=== PATIENT | female | born 1955 | race Caucasian/White ===

== ENCOUNTER 2016-11-11 05:23 | Day surgery (SDC) | payer BC, OTHER ==
[2016-10-31 11:21] LABS: HEMATOCRIT 41.6 % (36.0-47.0); HEMOGLOBIN 13.7 g/dL (12.0-15.5); HGB HCT DIFFERENCE -0.5; MEAN CORPUSCULAR HEMOGLOBIN 28.7 pg (27.0-33.4); MEAN CORPUSCULAR VOLUME 87 fl (80-97); RED BLOOD COUNT 4.79 10^6/uL (3.72-5.28); RED CELL DISTRIBUTION WIDTH 13.7 % (11.5-14.0); WHITE BLOOD COUNT 7.7 10^3/uL (4.0-10.5)
[2016-10-31 11:26] LABS: PROTHROMBIN TIME 12.9 SEC (11.4-15.4)
[2016-10-31 11:27] LABS: PARTIAL THROMBOPLASTIN TIME 27.5 SEC (23.5-35.8)
[~2016-11-11 05:23] MED LIST: CEFAZOLIN 1 GM/D5W RTU 1 GM/50 ML RTUPB IV PRN; LACTATED RINGERS 1000 ML IV PRN; LIDOCAINE 0.5% INJ-PF (5 MG/ML) 50 ML SDV SUBCUT PRN
[2016-11-11] MEDS ORDERED: SODIUM BICARBONATE 8.4% INJ 50 MEQ/50 ML DISP.SYRIN ONE (06:49)
[2016-11-11] MEDS ORDERED: POVIDONE-IODINE 5% OPH PREP SOLN 30 ML ONE (06:49)
[2016-11-11] MEDS ORDERED: LIDOCAINE 1%/EPINEPHRINE INJ 20 ML VIAL ONE (06:50)
[2016-11-11] MEDS ORDERED: MIDAZOLAM 2 MG/2 ML INJ ONE (06:54)
[2016-11-11] MEDS ORDERED: FENTANYL CITRATE INJ/PF 100 MCG/2 ML AMPUL ONE ×2 (06:54)
[2016-11-11] MEDS ORDERED: PROPOFOL INJ 200 MG/20 ML VIAL IV ONE (06:55)
[2016-11-11] MEDS ORDERED: DIPHENHYDRAMINE HCL 50 MG/ML VIAL IV PRN (08:06)
[2016-11-11] MEDS ORDERED: OXYCODONE-ACETAMINOPHEN 5-325 MG TABLET PO PRN ×2 (08:06)
[2016-11-11] MEDS ORDERED: MEPERIDINE HCL/PF INJ 25 MG/1 ML DISP.SYRIN IV PRN (08:06)
[2016-11-11] MEDS ORDERED: PROMETHAZINE HCL INJ 25 MG/1 ML VIAL IV PRN ×2 (08:06)
[2016-11-11] MEDS ORDERED: FENTANYL CITRATE INJ/PF 100 MCG/2 ML AMPUL IV PRN ×3 (08:06)
[2016-11-11] MEDS ORDERED: MORPHINE SULFATE 10 MG/ML INJ IV PRN (08:06)
--- NOTE | 2016-11-11 09:50 | Operative Report ---
Operative Report DATE OF SURGERY: 11/11/16 PREOPERATIVE DIAGNOSIS: Basal squamous cell carcinoma of the right nose POSTOPERATIVE DIAGNOSIS: Same OPERATION: Excision of basal squamous carcinoma of the right hip and nose with frozen section margin control and reconstruction with a full thickness graft with a bolus tie-over dressing and the graft was taken from the right clavicular area. SURGEON: DENISSE ARGUETA ANESTHESIA: LMAC TISSUE REMOVED OR ALTERED: Basal squamous cell carcinoma COMPLICATIONS: None ESTIMATED BLOOD LOSS: Minimal PROCEDURE: The patient was brought into the operating room. The patient was laid on the operating room table in a supine position. The patient was prepped and draped in a sterile and aseptic fashion. After a timeout we then went ahead and marked the area [on the right tip of the nose] to be resected. The 12:00 margin was towards the nasion. The 3:00 margin was towards the left side of the nose. The 6:00 margin was towards the lip. The 9:00 margin was towards the right side of the nose. Then went ahead and anesthetize the area with 1% lidocaine with epinephrine. Then went ahead and excise the area. Stitch was placed at 12:00 and it was sent for frozen section. Frozen section results came back that the deep and lateral margins were clear. We irrigated the wound with [Betadine] sterile water to lyse any remaining cancer cells. We then went ahead and decided that because of the size of the defect we will proceed with a skin graft. Decided to harvest the graft from [the right clavicular area]. We then went ahead and harvest the [full-thickness] graft. We closed the area with [4-0 Vicryl] sutures and the skin was then closed with 4 -0 PDS with knots being tied on the outside and a support stitch in the center. At the end of the case tincture of benzoin and Steri-Strips were applied with a light pressure dressing. Graft was then defatted to the appropriate size and placed into the area of defect. It was then sutured into place with [5-0 Prolene] sutures leaving one end long. After all the sutures were placed we then went ahead and applied Xeroform. Then went ahead and created a bolus dressing and tied each suture 180 from each other. Then tied the sutures again to each other. Bacitracin was applied. 2 x 2's were applied and tincture benzoin and the dressing was taped into place. At the end of the case the patient was doing well and brought to the PAR for recovery The approximate size of the lesion was approximately 1.1 cm x 1.1 cm. This dictation was performed using [employer] naturally speaking. If there are any inconsistencies please contact the dictating surgeon. Subjective: No complaints Objective: Vital signs stable afebrile No bleeding Dressing intact Assessment and plan: Doing well. Elevate the operative site. Resume medications. Take antibiotics for 1 day Follow-up Full instructions were given to the patient and family and they understand Portions of this note may be dictated using Att[employer] voice recognition software. Occasional variations and spelling and vocabulary could be possible and are unintentional. Additionally, there is a chance that some errors may not be caught or corrected. Please notify the offer of any discrepancies noted or if any statements are unclear.
--- NOTE | 2016-11-11 09:52 | PDOC DISCHARGE SUMMARY ---
Discharge Summary (SDC) - Discharge Final Diagnosis: Basal squamous carcinoma of the right tip of the nose Date of Surgery: 11/11/16 Condition: Good Treatment or Instructions: Elevate operative area to decrease swelling. Do not strain, or lift heavy objects. Call for excessive bleeding, increased temperature of 101, uncontrolled pain, or excessive nausea or vomiting. You may reach Dr. Alatorre through his office at [phone]. In the event of an emergency after hours, then contact Dr. Alatorre through [facility]. Return to the office for a postop check on . The time will be scheduled by the nursing staff of [facility] prior to discharge. Please give the patient a copy of their labs and EKG so they can bring this to their PMD. Thank you Portions of this note may be dictated using Pollenizer voice recognition software. Occasional variations and spelling and vocabulary could be possible and are unintentional. Additionally, there is a chance that some errors may not be caught or corrected. Please notify the offer of any discrepancies noted or if any statements are unclear. Discharge Diet: As Tolerated Discharge Activity: Activity As Tolerated - Discharge to home
[2016-11-11] MEDS ORDERED: DEXAMETHASONE SOD PHOSPHATE INJ 4 MG/1 ML VIAL ONE (10:43)
[2016-11-11] MEDS ORDERED: ONDANSETRON HCL INJ/PF 4 MG/2 ML SDV ONE (10:43)
[2016-11-11 11:21] VITALS: BP 120/69
== END 2016-11-11 11:10 | disposition home or self-care (01) ==
LOC: OROUT 05:23
PROVIDERS: ATTEND Plastic Surgery
PROC: 0HR1X73 Replacement of Face Skin with Autologous Tissue Substitute, Full Thickness, External Approach (ICD-10-PCS; principal; 2016-11-11 07:30)
DX: C44.311 Basal cell carcinoma of skin of nose (principal); C44.321 Squamous cell carcinoma of skin of nose; R01.1 Cardiac murmur, unspecified; K21.9 Gastro-esophageal reflux disease without esophagitis; E66.9 Obesity, unspecified; J45.909 Unspecified asthma, uncomplicated; F17.210 Nicotine dependence, cigarettes, uncomplicated; M19.90 Unspecified osteoarthritis, unspecified site; Z86.73 Personal history of transient ischemic attack (TIA), and cerebral infarction without residual deficits; Z68.33 Body mass index [BMI] 33.0-33.9, adult; Z79.51 Long term (current) use of inhaled steroids; Z79.82 Long term (current) use of aspirin; Z79.1 Long term (current) use of non-steroidal anti-inflammatories (NSAID)
CPT/HCPCS: 11642; 15260; 36415; 82962; 85027; 85610; 85730; 88305 ×2; 88331 ×2; J2250; J0690; J1100; J3010; J3490 ×3; J2405; J2704; 300

== ENCOUNTER 2017-07-24 08:49 | Inpatient (IN) | payer BC ==
[2017-07-24] MEDS ORDERED: ALBUTEROL SULFATE 0.083% NEB 2.5 MG/3 ML AMPUL NEB ONE ×2 (09:10→10:16)
--- NOTE | 2017-07-24 09:15 | ER Document Report ---
ED Respiratory Problem - General Chief Complaint: Respiratory Distress Stated Complaint: DIFFICULTY BREATHING Time Seen by Provider: 07/24/17 09:14 TRAVEL OUTSIDE OF THE [place] IN LAST 30 DAYS: No - HPI Patient complains to provider of: COPD, Cough, Short of breath Onset: Last week Duration: Continuous, Worse/persistent Quality of pain: No pain Severity: Moderate Pain Level: Denies Context: Hx asthma, Hx COPD, Smoker. denies: DVT, Factor V Leiden, Hx CHF, Malignancy, Recent cardiac event, Recent foreign travel, Recent long distance trvl Short of Breath: Moderate Cough: Productive Sputum amount: Small Sputum color: Clear At home treatment: Bronchodilators, Oral steroids. denies: Oxygen Associated symptoms: Cough, Short of breath, Wheezing - Related Data Allergies/Adverse Reactions: No Known Allergies Allergy (Verified 07/24/17 08:55) Past Medical History - General Information source: Patient - Social History Smoking Status: Current Every Day Smoker Cigarette use (# per day): Yes Smoking Education Provided: Yes Frequency of alcohol use: None Drug Abuse: None Lives with: Family Family History: Reviewed & Not Pertinent - Past Medical History Cardiac Medical History: Reports: Hx Hypertension - NO LONGER ON MEDS Denies: Hx Coronary Artery Disease, Hx Heart Attack Pulmonary Medical History: Reports: Hx Asthma, Hx Bronchitis, Hx COPD, Hx Pneumonia Neurological Medical History: Reports: Hx Cerebrovascular Accident - EARLY 1999s , NO DEFICITS. Denies: Hx Seizures Musculoskeltal Medical History: Reports Hx Arthritis - FINGERS, HIPS - Immunizations Hx Diphtheria, Pertussis, Tetanus Vaccination: No Review of Systems - Review of Systems Constitutional: denies: Fever, Malaise, Weakness EENT: denies: Blurred vision, Double vision, Mouth pain Cardiovascular: denies: Chest pain, Palpitations, Heart racing Respiratory: Cough, Hurts to breathe, Short of breath, Wheezing Gastrointestinal: denies: Abdominal pain, Diarrhea, Nausea, Vomiting Genitourinary: denies: Burning, Dysuria, Discharge Skin: denies: Change in color, Dryness, Lesions, Lumps, Rash Hematologic/Lymphatic: denies: Anemia, Blood clots, Easy bleeding, Easy bruising Neurological/Psychological: denies: Confusion, Dementia, Weakness, Numbness Physical Exam - Vital signs Vitals: Temp Pulse Resp BP Pulse Ox 97.6 F 84 26 H 159/78 H 90 L 07/24/17 08:59 07/24/17 08:59 07/24/17 08:59 07/24/17 08:59 07/24/17 08:59 Interpretation: Hypoxic, Tachypneic - General General appearance: Appears well, Alert - HEENT Head: Normocephalic, Atraumatic Eyes: Normal Pupils: PERRL - Respiratory Respiratory status: No respiratory distress Chest status: Nontender Breath sounds: Decreased air movement, Productive cough, Rhonchi, Wheezing Chest palpation: Normal - Cardiovascular Rhythm: Regular Heart sounds: Normal auscultation Murmur: No - Abdominal Inspection: Normal Distension: No distension Bowel sounds: Normal Tenderness: Nontender Organomegaly: No organomegaly - Back Back: Normal, Nontender - Extremities General upper extremity: Normal inspection, Nontender, Normal color, Normal ROM , Normal temperature. No: Edema General lower extremity: Normal inspection, Nontender, Normal color, Normal ROM , Normal temperature, Normal weight bearing. No: Edema, Radha's sign - Neurological Neuro grossly intact: Yes Cognition: Normal Orientation: AAOx4 Hugh Coma Scale Eye Opening: Spontaneous Blenheim Coma Scale Verbal: Oriented Hugh Coma Scale Motor: Obeys Commands Blenheim Coma Scale Total: 15 Speech: Normal Motor strength normal: LUE, RUE, LLE, RLE Sensory: Normal - Psychological Associated symptoms: Normal affect, Normal mood - Skin Skin Temperature: Warm Skin Moisture: Dry Skin Color: Normal Course - Re-evaluation Re-evalutation: 07/24/17 10:45 Patient with elevated WBC count, hypoxia when taken off oxygen. Has been treated as an outpatient not getting better. Will need admit. Awaiting callback at this time from Dr. Sierra 07/24/17 11:02 Patient accepted admission at this time. 07/24/17 11:03 Laboratory 07/24/17 07/24/17 07/24/17 09:24 09:24 09:24 WBC 17.0 H RBC 4.98 Hgb 14.5 Hct 42.8 MCV 86 MCH 29.0 MCHC 33.8 RDW 13.7 Plt Count 337 Seg Neutrophils % 84.5 H Lymphocytes % 11.0 L Monocytes % 4.3 Eosinophils % 0.0 Basophils % 0.2 Absolute Neutrophils 14.3 H Absolute Lymphocytes 1.9 Absolute Monocytes 0.7 Absolute Eosinophils 0.0 Absolute Basophils 0.0 Sodium 141.1 Potassium 4.3 Chloride 102 Carbon Dioxide 30 Anion Gap 9 BUN 17 Creatinine 0.77 Est GFR ( Amer) > 60 Est GFR (Non-Af Amer) > 60 Glucose 115 H Lactic Acid Calcium 9.8 Total Bilirubin 0.8 Direct Bilirubin 0.4 Neonat Total Bilirubin Not Reportable Neonat Direct Bilirubin Not Reportable Neonat Indirect Bili Not Reportable AST 22 ALT 31 Alkaline Phosphatase 92 Troponin I < 0.012 Total Protein 7.6 Albumin 4.1 07/24/17 10:28 WBC RBC Hgb Hct MCV MCH MCHC RDW Plt Count Seg Neutrophils % Lymphocytes % Monocytes % Eosinophils % Basophils % Absolute Neutrophils Absolute Lymphocytes Absolute Monocytes Absolute Eosinophils Absolute Basophils Sodium Potassium Chloride Carbon Dioxide Anion Gap BUN Creatinine Est GFR ( Amer) Est GFR (Non-Af Amer) Glucose Lactic Acid 1.0 Calcium Total Bilirubin Direct Bilirubin Neonat Total Bilirubin Neonat Direct Bilirubin Neonat Indirect Bili AST ALT Alkaline Phosphatase Troponin I Total Protein Albumin Chest X-Ray 07/24/17 09:25 IMPRESSION: NO ACUTE RADIOGRAPHIC FINDING IN THE CHEST. - Vital Signs Vital signs: Temp Pulse Resp BP Pulse Ox 97.6 F 84 26 H 159/78 H 90 L 07/24/17 08:59 07/24/17 08:59 07/24/17 08:59 07/24/17 08:59 07/24/17 08:59 - Laboratory Result Diagrams: 07/24/17 09:24 07/24/17 09:24 Laboratory results interpreted by me: 07/24/17 07/24/17 09:24 09:24 WBC 17.0 H Seg Neutrophils % 84.5 H Lymphocytes % 11.0 L Absolute Neutrophils 14.3 H Glucose 115 H Discharge - Discharge Clinical Impression: COPD with exacerbation Condition: Good Disposition: ADMITTED INPATIENT Admitting Provider: [facility] Unit Admitted: Telemetry
[2017-07-24 09:42] LABS: ABSOLUTE LYMPHOCYTES (AUTO) 1.9 10^3/uL (0.5-4.7); ABSOLUTE MONOCYTES (AUTO) 0.7 10^3/uL (0.1-1.4); ABSOLUTE NEUT (AUTO) 14.3 10^3/uL (1.7-8.2); BASOPHILS % (AUTO) 0.2 % (0-2); HEMATOCRIT 42.8 % (36.0-47.0); HEMOGLOBIN 14.5 g/dL (12.0-15.5); MEAN CORPUSCULAR HGB CONC 33.8 g/dL (32.0-36.0); MEAN CORPUSCULAR VOLUME 86 fl (80-97); MONOCYTES % (AUTO) 4.3 % (3-13); PLATELET COUNT 337 10^3/uL (150-450); RED BLOOD COUNT 4.98 10^6/uL (3.72-5.28); RED CELL DISTRIBUTION WIDTH 13.7 % (11.5-14.0); SEGMENTED NEUTROPHILS % (AUTO) 84.5 % (42-78); TOTAL CELLS COUNTED % (AUTO) 100 %
[2017-07-24 10:04] LABS: ALANINE AMINOTRANSFERASE 31 U/L (9-52); ALBUMIN 4.1 g/dL (3.5-5.0); ALKALINE PHOSPHATASE 92 U/L (38-126); ANION GAP 9 (5-19); ASPARTATE AMINO TRANSFERASE 22 U/L (14-36); BILIRUBIN,DIRECT 0.4 mg/dL (0.0-0.4); BILIRUBIN,TOTAL 0.8 mg/dL (0.2-1.3); BLOOD UREA NITROGEN 17 mg/dL (7-20); CALCIUM 9.8 mg/dL (8.4-10.2); CARBON DIOXIDE 30 mmol/L (22-30); CHLORIDE 102 mmol/L (98-107); GLUCOSE 115 mg/dL (75-110); POTASSIUM 4.3 mmol/L (3.6-5.0); SODIUM 141.1 mmol/L (137-145); TOTAL PROTEIN 7.6 g/dL (6.3-8.2)
--- NOTE | 2017-07-24 10:11 | RADIOLOGY REPORT (SQ) ---
EXAM DESCRIPTION: CHEST SINGLE VIEW COMPLETED DATE/TIME: 07/24/2017 9:38 am REASON FOR STUDY: sob COMPARISON: None. EXAM PARAMETERS: NUMBER OF VIEWS: One view. TECHNIQUE: Single frontal radiographic view of the chest acquired. RADIATION DOSE: NA LIMITATIONS: None. FINDINGS: LUNGS AND PLEURA: No opacities, masses or pneumothorax. No pleural effusion. MEDIASTINUM AND HILAR STRUCTURES: No masses. Contour normal. HEART AND VASCULAR STRUCTURES: Heart normal in size. Normal vasculature. BONES: No acute findings. HARDWARE: None in the chest. OTHER: No other significant finding. IMPRESSION: NO ACUTE RADIOGRAPHIC FINDING IN THE CHEST. TECHNICAL DOCUMENTATION: JOB ID: [id number] [employer]- All Rights Reserved Reading location - IP/workstation name: [email or web address]
[2017-07-24] MEDS ORDERED: METHYLPREDNISOLONE INJ 125 MG/2 ML SDV IV ONE (10:16)
[2017-07-24] MEDS ORDERED: LEVOFLOXACIN 750 MG/D5W RTU 750 MG/150 ML RTUPB IV ONE (10:17)
[2017-07-24] MEDS ORDERED: ONDANSETRON HCL INJ/PF 4 MG/2 ML SDV IV ONE (11:15)
[2017-07-24] MEDS ORDERED: ONDANSETRON HCL INJ/PF 4 MG/2 ML SDV ONE (11:17)
[2017-07-24] MEDS ORDERED: ONDANSETRON 4 MG TAB.RAPDIS PO PRN (11:19)
[2017-07-24] MEDS ORDERED: ALBUTEROL SULFATE 0.083% NEB 2.5 MG/3 ML AMPUL NEB PRN (11:19)
[2017-07-24] MEDS ORDERED: DEXTROSE 50%-WATER 25 GM/50 ML DISP.SYRIN IV PRN ×2 (11:27)
[2017-07-24] MEDS ORDERED: DEXTROSE 40% GEL 15 GM TUBE PO PRN ×2 (11:27)
[2017-07-24] MEDS ORDERED: GLUCAGON,HUMAN RECOMB 1 MG INJ IM PRN (11:27)
[2017-07-24 11:33] LABS: ARTERIAL BLOOD BASE EXCESS 3.5 mmol/L; ARTERIAL BLOOD FIO2 2L; ARTERIAL BLOOD H2CO3 1.16 mmol/L (1.05-1.35); ARTERIAL BLOOD HCO3 27.3 mmol/L (20-26); ARTERIAL BLOOD O2 SATURATION 94.4 % (94-98); ARTERIAL BLOOD PCO2 38.5 mmHg (35-45); ARTERIAL BLOOD PH 7.47 (7.35-7.45); ARTERIAL BLOOD PO2 66.9 mmHg (80-100); ARTERIAL BLOOD TOTAL CO2 28.4 mmol/L (21-25)
--- NOTE | 2017-07-24 12:55 | RADIOLOGY REPORT (SQ) ---
EXAM DESCRIPTION: CTA CHEST COMPLETED DATE/TIME: 07/24/2017 12:44 pm REASON FOR STUDY: sob COMPARISON: None. TECHNIQUE: CT scan of the chest performed using helical scanning technique with dynamic intravenous contrast injection. Images reviewed with lung, soft tissue and bone windows. Reconstructed coronal and sagittal MPR images reviewed. Additional 3 dimensional post-processing performed to develop Maximal Intensity Projection images ([place] P). All images stored on PACS. All CT scanners at this facility use dose modulation, iterative reconstruction, and/or weight based d osing when appropriate to reduce radiation dose to as low as reasonably achievable (ALARA). [facility]: Dose Right [facility]: CareDose [facility]: Dose Right [facility]: Teradose 4D [facility]: Aethon CONTRAST TYPE AND DOSE: contrast/concentration: Isovue 370.00 mg/ml; Total Contrast Delivered: 72.0 ml; Total Saline Delivered: 80.0 ml Contrast bolus adequate for pulmonary arteries and aorta. RENAL FUNCTION: GFR > 60. RADIATION DOSE: CT Rad equipment meets quality standard of care and radiation dose reduction techniq ues were employed. CTDIvol: 16.1 - 16.5 mGy. DLP: 609 mGy-cm. . LIMITATIONS: None. FINDINGS: LUNGS AND PLEURA: No masses, infiltrates, pneumothorax. No pleural effusions, calcificati ons. AORTA AND GREAT VESSELS: No aneurysm. No dissection. HEART: No pericardial effusion. PULMONARY ARTERIES: No emboli visualized in the main pulmonary arteries or the segmental branches. HILAR AND MEDIASTINAL STRUCTURES: No identified masses or abnormal nodes. HARDWARE: None in the chest. UPPER ABDOMEN: No significant findings. Limited exam. THYROID AND OTHER SOFT TISSUES: Breast implants. BONES: No acute or significant finding. 3D MIPS: Confirm above findings. OTHER: No other significant finding. IMPRESSION: No PE. No acute findings. COMMENT: Quality ID # [id number]: Final reports with documentation of one or more dose reduction techniques (e.g., Automated exposure control, adjustment of the mA and/or kV according to patient size, use of iterative reconstruction technique) TECHNICAL DOCUMENTATION: JOB ID: [id number] [employer]- All Rights Reserved Reading location - IP/workstation name: [email or web address]
[2017-07-24 13:09] LABS: CREATINE KINASE MB 3.41 ng/mL (<4.55); NT PRO BNP 212 pg/mL (5-900); TROPONIN I < 0.012 ng/mL
[2017-07-24] MEDS: IPRATROPIUM/ALBUTEROL 0.5-2.5 MG/3 ML AMPUL NEB SCH ×2 (13:49→20:20)
[2017-07-24] MEDS ORDERED: INFLUENZA ADLT QUAD (36MOS+) 2017-18 VAC 0.5 ML SYR IM PRN (14:11)
[2017-07-24] MEDS: METHYLPREDNISOLONE INJ 125 MG/2 ML SDV IV SCH ×2 (15:34→22:28)
[2017-07-24] MEDS ORDERED: [UNRECOGNIZED DRUG - OTHER] PO PRN (16:32)
[2017-07-24] MEDS ORDERED: HYDROCODONE PO PRN (16:32)
[2017-07-24] MEDS ORDERED: CHLORPHEN P STIREX PO PRN (16:32)
--- NOTE | 2017-07-24 17:00 | PDOC H&P ---
History of Present Illness Admission Date/PCP: 07/24/17 10:57 LESA [place] MD Patient complains of: Dyspnea, cough with dark yellow sputum History of Present Illness: MANI CRISOSTOMO is a 62 year old female who has a long-standing history of tobacco use disorder. She reports that recently she had the flu. She was out of work for about a week. She states that with the recent strange weather including heat followed by extreme cold followed by when she feels that her body just could not keep up and she started having difficulty breathing. She is been seen at her primary care doctor's office for the last few days and states that she has been receiving steroids and IM ceftriaxone 2 doses. Today she went to her primary care doctor for follow-up and secondary to significant dyspnea she was sent to the ER. In the ER she had a CTA to rule out pulmonary embolus. She received steroids and nebulizer. She is being admitted for COPD exacerbation, though she has never been diagnosed with COPD. Given her tobacco history this is the most likely diagnosis. Today she has started to expectorate dark yellow phlegm. No fevers or chills though she has been very fatigued. No chest pain. No abdominal pain nausea or vomiting. Past Medical History Cardiac Medical History: Reports: Hypertension - NO LONGER ON MEDS Denies: Coronary Artery Disease, Myocardial Infarction Pulmonary Medical History: Reports: Asthma, Bronchitis, Chronic Obstructive Pulmonary Disease (COPD), Pneumonia EENT Medical History: Reports: None Neurological Medical History: Denies: Ischemic CVA, Seizures Endocrine Medical History: Denies: Diabetes Mellitus Type 2 Renal/ Medical History: Denies: Chronic Kidney Disease Malignancy Medical History: Reports: None GI Medical History: Reports: None Musculoskeltal Medical History: Reports: Arthritis - FINGERS, HIPS Skin Medical History: Reports: Other - Patient has had 2 basal cell carcinomas excised Psychiatric Medical History: Reports: Tobacco Dependency Denies: Alcohol Dependency, Substance Abuse Hematology: Denies: Anemia, Bleeding Tendencies Infectious Medical History: Reports: None Past Surgical History Past Surgical History: Reports: Hysterectomy, Other - Breast implants, dental posts, 2 basal cell carcinoma removals Social History Information Source: Patient Lives with: Family Smoking Status: Current Every Day Smoker Cigarettes Packs Per Day: 1 Number of Years Smokin Frequency of Alcohol Use: None Hx Recreational Drug Use: No Drugs: None Hx Prescription Drug Abuse: No Past Social History Note: 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 She has children and grandchildren in her room with her - Advance Directive Resuscitation Status: Full Code Family History Family History: CAD, Malignancy Parental Family History Reviewed: Yes - Father with an AK, mother had uterine and pancreatic cancer Children Family History Reviewed: Yes - Children are healthy Sibling(s) Family History Reviewed.: Yes - One brother is diabetic with COPD, another brother with a heart attack Medication/Allergy Home Medications: Albuterol Sulfate [Ventolin 0.083% Neb 2.5 mg/3 ml Ampul] 1 vial NEB [id number] PRN 07/24/17 Azithromycin [Zithromax] 250 mg PO DAILY 07/24/17 Ergocalciferol (Vitamin D2) [Vitamin D2] 50,000 unit PO TH@1000 07/24/17 Fluticasone/Salmeterol [Advair 500-50 Diskus 28 Dose] 1 inh IH Q12 07/24/17 Hydrocodone/Chlorphen P-Stirex [Tussionex Pennkinetic Susp] 5 ml PO Q12 Montelukast Sodium [Singulair 10 mg Tablet] 10 mg PO DAILY 07/24/17 Pantoprazole Sodium [Protonix] 40 mg PO Q6AM 07/24/17 Prednisone [Deltasone 20 mg Tablet] 60 mg PO DAILY 07/24/17 Allergies/Adverse Reactions: bacitracin Allergy (Verified 07/24/17 16:49) Review of Systems Constitutional: PRESENT: fatigue, weight gain. ABSENT: fever(s) Eyes: ABSENT: visual disturbances Ears: ABSENT: hearing changes Nose, Mouth, and Throat: ABSENT: headache(s), mouth pain, sore throat Cardiovascular: PRESENT: dyspnea on exertion. ABSENT: chest pain, edema, orthropnea Gastrointestinal: ABSENT: abdominal pain, constipation, nausea, vomiting Genitourinary: ABSENT: difficulty urinating Musculoskeletal: ABSENT: back pain, muscle weakness Integumentary: ABSENT: diaphoresis, lesions Neurological: ABSENT: abnormal speech, confusion, focal weakness, frequent falls Psychiatric: ABSENT: anxiety, depression Endocrine: ABSENT: cold intolerance, heat intolerance Hematologic/Lymphatic: ABSENT: easy bleeding Physical Exam Vital Signs: Temp Pulse Resp BP Pulse Ox 98.5 F 94 18 152/66 H 95 07/24/17 15:27 07/24/17 15:27 07/24/17 15:27 07/24/17 15:27 07/24/17 15:27 General appearance: PRESENT: cooperative, mild distress Head exam: PRESENT: atraumatic, normocephalic Eye exam: PRESENT: conjunctiva pink, EOMI. ABSENT: scleral icterus Ear exam: PRESENT: normal external ear exam. ABSENT: drainage Mouth exam: PRESENT: moist, neck supple Neck exam: PRESENT: full ROM. ABSENT: tenderness Respiratory exam: PRESENT: decreased breath sounds, prolonged expiratory phas, tachypnea, wheezes. ABSENT: rales, rhonchi, unlabored Cardiovascular exam: PRESENT: tachycardia. ABSENT: systolic murmur Pulses: PRESENT: normal radial pulses GI/Abdominal exam: PRESENT: normal bowel sounds, soft. ABSENT: distended, guarding, tenderness Rectal exam: PRESENT: deferred Extremities exam: ABSENT: pedal edema Musculoskeletal exam: PRESENT: normal inspection Neurological exam: PRESENT: alert, awake, oriented to person, oriented to place , oriented to situation, CN II-XII grossly intact Psychiatric exam: PRESENT: appropriate affect. ABSENT: anxious Skin exam: PRESENT: dry, intact, warm Results Laboratory Results: 07/24/17 07/24/17 12:13 12:13 Creatine Kinase 80 CK-MB (CK-2) 3.41 Troponin I < 0.012 NT-Pro-B Natriuret Pep 212 Impressions: Chest X-Ray 07/24/17 09:25 IMPRESSION: NO ACUTE RADIOGRAPHIC FINDING IN THE CHEST. Chest/Abdomen CTA 07/24/17 11:03 IMPRESSION: No PE. No acute findings. Assessment & Plan - Diagnosis (1) Pneumonia, community acquired Qualifiers: Laterality: unspecified laterality Qualified Code(s): J18.9 - Pneumonia, unspecified organism Is this a current diagnosis for this admission?: Yes Plan: Pathogen unknown, sputum culture ordered, patient is on Levaquin 750 mg p.o. daily. No chest x-ray evidence of pneumonia though she is producing sputum and has a severe COPD exacerbation. Sputum is not her normal baseline. (2) COPD with exacerbation Is this a current diagnosis for this admission?: Yes Plan: Patient will be started on Levaquin. Secondary to severe wheezing and dyspnea she is on Solu-Medrol 125 mg IV every 8 hours and will reassess this dosing tomorrow morning. She has scheduled duo nebs and as needed albuterol available. She is feeling better. She is still requiring oxygen. She will be monitored closely. (3) Acute hypoxemic respiratory failure Is this a current diagnosis for this admission?: Yes Plan: Secondary to COPD exacerbation which is fairly severe and also pneumonia. Please see those problems for treatment plan. We will use oxygen as indicated and titrate hopefully to off prior to discharge. CTA of the chest is negative for PE. (4) Tobacco use disorder, continuous Is this a current diagnosis for this admission?: Yes Plan: Tobacco cessation counseling performed for 6 minutes. Patient does not want a NicoDerm patch. She has tried to quit multiple times in the past and would like to continue to try to quit. We will help her with strategies prior to discharge. She was on Chantix but gained a significant amount of weight. We talked about Wellbutrin. Will continue discussion. (5) Diabetes Qualifiers: Diabetes mellitus type: due to underlying condition Is this a current diagnosis for this admission?: Yes Plan: hemoglobin A1c is 6.1. She does not have known diabetes. She has been on steroids for an unknown period of time for her lung disease. For now will use lispro before meals and at bedtime. Will consider adding long-acting glargine once we have a little bit more data. - Time Time Spent: 50 to 70 Minutes Medications reviewed and adjusted accordingly: Yes - Inpatient Certification Based on my medical assessment, after consideration of the patient's comorbidities, presenting symptoms, or acuity I expect that the services needed warrant INPATIENT care.: Yes I certify that my determination is in accordance with my understanding of Medicare's requirements for reasonable and necessary INPATIENT services [42 CFR 412.3e].: Yes Medical Necessity: Failure to Improve With Outpatient Therapy, Need Close Monitoring Due to Risk of Patient Decompensation, Need for Nebulizer Therapy and Monitoring of Response, Risk of Complication if Not Cared For in Hospital
[2017-07-24 18:41] LABS: CREATINE KINASE MB 3.76 ng/mL (<4.55)
[2017-07-24 18:46] LABS: TROPONIN I < 0.012 ng/mL
--- NOTE | 2017-07-24 21:13 | EKG REPORT ---
SEVERITY:- NORMAL ECG - SINUS RHYTHM : Confirmed by: Telly Powell 24-Jul-2017 21:12:04
[2017-07-24] MEDS: PANTOPRAZOLE SODIUM 40 MG VIAL IV SCH (22:27)
[2017-07-24] MEDS: INSULIN LISPRO 100 UNIT/ML 3 ML VIAL SUBCUT PRN (22:33)
[2017-07-25 00:33] LABS: CREATINE KINASE MB 4.38 ng/mL (<4.55); TROPONIN I < 0.012 ng/mL
[2017-07-25] MEDS: METHYLPREDNISOLONE INJ 125 MG/2 ML SDV IV SCH ×3 (05:48→21:55)
[2017-07-25 07:32] LABS: HEMOGLOBIN 13.5 g/dL (12.0-15.5); MEAN CORPUSCULAR HEMOGLOBIN 28.9 pg (27.0-33.4); MEAN CORPUSCULAR HGB CONC 33.7 g/dL (32.0-36.0); MEAN CORPUSCULAR VOLUME 86 fl (80-97); PLATELET COUNT 289 10^3/uL (150-450); RED BLOOD COUNT 4.67 10^6/uL (3.72-5.28); RED CELL DISTRIBUTION WIDTH 14.2 % (11.5-14.0); WHITE BLOOD COUNT 18.6 10^3/uL (4.0-10.5)
[2017-07-25 07:52] LABS: ANION GAP 8 (5-19); BLOOD UREA NITROGEN 22 mg/dL (7-20); CALCIUM 9.5 mg/dL (8.4-10.2); CARBON DIOXIDE 29 mmol/L (22-30); CHLORIDE 103 mmol/L (98-107); GLUCOSE 156 mg/dL (75-110); POTASSIUM 4.8 mmol/L (3.6-5.0); SODIUM 139.6 mmol/L (137-145)
[2017-07-25] MEDS: IPRATROPIUM/ALBUTEROL 0.5-2.5 MG/3 ML AMPUL NEB SCH ×3 (08:58→20:22)
[2017-07-25] MEDS: MONTELUKAST SODIUM 10 MG TABLET PO SCH (09:05)
[2017-07-25] MEDS: LEVOFLOXACIN 750 MG TABLET PO SCH (09:05)
[2017-07-25] MEDS: ENOXAPARIN SODIUM INJ 40 MG/0.4 ML DISP.SYRIN SUBCUT SCH (09:06)
[2017-07-25] MEDS: PANTOPRAZOLE SODIUM 40 MG VIAL IV SCH ×2 (09:15→21:55)
[2017-07-25] MEDS ORDERED: VARENICLINE TARTRATE 1 MG TABLET PO SCH (10:00)
--- NOTE | 2017-07-25 18:00 | PDOC PROGRESS REPORT ---
Subjective Progress Note for:: 07/25/17 Subjective:: She is breathing better, still very dyspneic with ambulation, she is able to speak more fluently now. No chest pain. No phlegm production. No fever or chills. Reason For Visit: COPD WITH EXACERBATION,ACUTE HYPOXEMIC RESPIRATORY Physical Exam Vital Signs: Temp Pulse Resp BP Pulse Ox 98.7 F 92 18 134/69 H 97 07/25/17 15:28 07/25/17 15:28 07/25/17 15:28 07/25/17 15:28 07/25/17 15:38 Intake & Output 07/24/17 07/25/17 07/26/17 06:59 06:59 07:59 Intake Total 435 864 Balance 435 864 Weight 80.2 kg General appearance: PRESENT: cooperative, mild distress Head exam: PRESENT: atraumatic, normocephalic Eye exam: PRESENT: conjunctiva pink, EOMI Ear exam: PRESENT: normal external ear exam Mouth exam: PRESENT: neck supple, tongue midline Respiratory exam: PRESENT: decreased breath sounds, wheezes. ABSENT: rales, rhonchi, unlabored Cardiovascular exam: PRESENT: tachycardia. ABSENT: systolic murmur Pulses: PRESENT: normal radial pulses GI/Abdominal exam: PRESENT: normal bowel sounds, soft. ABSENT: distended, tenderness Rectal exam: PRESENT: deferred Extremities exam: ABSENT: pedal edema Neurological exam: PRESENT: alert, awake, oriented to person, oriented to place , oriented to situation, CN II-XII grossly intact Psychiatric exam: PRESENT: anxious, appropriate affect Skin exam: PRESENT: dry, warm Results Laboratory Results: 07/25/17 07:16 07/25/17 07:16 07/25/17 07/25/17 07/25/17 07:16 07:16 07:16 WBC 18.6 H RBC 4.67 Hgb 13.5 Hct 40.0 MCV 86 MCH 28.9 MCHC 33.7 RDW 14.2 H Plt Count 289 Sodium 139.6 Potassium 4.8 Chloride 103 Carbon Dioxide 29 Anion Gap 8 BUN 22 H Creatinine 0.85 Est GFR ( Amer) > 60 Est GFR (Non-Af Amer) > 60 Glucose 156 H Calcium 9.5 TSH 0.93 07/24/17 07/24/17 07/24/17 12:13 12:13 17:30 Creatine Kinase 80 89 CK-MB (CK-2) 3.41 Troponin I < 0.012 NT-Pro-B Natriuret Pep 212 07/24/17 07/24/17 07/24/17 17:30 23:54 23:54 Creatine Kinase 89 CK-MB (CK-2) 3.76 4.38 Troponin I < 0.012 < 0.012 NT-Pro-B Natriuret Pep Impressions: Chest X-Ray 07/24/17 09:25 IMPRESSION: NO ACUTE RADIOGRAPHIC FINDING IN THE CHEST. Chest/Abdomen CTA 07/24/17 11:03 IMPRESSION: No PE. No acute findings. Assessment & Plan - Diagnosis (1) Pneumonia, community acquired Qualifiers: Laterality: unspecified laterality Qualified Code(s): J18.9 - Pneumonia, unspecified organism Is this a current diagnosis for this admission?: Yes Plan: pt feeling better, will cont current care and antibiotics (2) COPD with exacerbation Is this a current diagnosis for this admission?: Yes Plan: breathing better, will decrease steroids to 125 mg q 12 hrs, cont bronchodilators and ABX (3) Acute hypoxemic respiratory failure Is this a current diagnosis for this admission?: Yes Plan: improving with treatment of COPD and pneumonia (4) Tobacco use disorder, continuous Is this a current diagnosis for this admission?: Yes Plan: tobacco cessation counseling performed today, she is contemplative and will talk with her about chanyousifx, which she has taken in the past (5) Diabetes Qualifiers: Diabetes mellitus type: due to underlying condition Is this a current diagnosis for this admission?: Yes Plan: we had a long discussion about treatment of diabetes, she is reluctant to start metformin but has had an elevated A1C for a prolonged period of time, I recommended she start metformin on DC. - Time Time Spent with patient: 25-34 minutes Medications reviewed and adjusted accordingly: Yes - Inpatient Certification Based on my medical assessment, after consideration of the patient's comorbidities, presenting symptoms, or acuity I expect that the services needed warrant INPATIENT care.: Yes I certify that my determination is in accordance with my understanding of Medicare's requirements for reasonable and necessary INPATIENT services [42 CFR 412.3e].: Yes Medical Necessity: Significant Comorbidiites Make Outpatient Treatment Too Risky , Need Close Monitoring Due to Risk of Patient Decompensation, Risk of Complication if Not Cared For in Hospital
[2017-07-26] MEDS: IPRATROPIUM/ALBUTEROL 0.5-2.5 MG/3 ML AMPUL NEB SCH ×3 (08:26→20:36)
[2017-07-26 08:28] LABS: HEMATOCRIT 40.4 % (36.0-47.0); HEMOGLOBIN 13.6 g/dL (12.0-15.5); MEAN CORPUSCULAR HGB CONC 33.6 g/dL (32.0-36.0); MEAN CORPUSCULAR VOLUME 86 fl (80-97); PLATELET COUNT 294 10^3/uL (150-450); RED BLOOD COUNT 4.68 10^6/uL (3.72-5.28); WHITE BLOOD COUNT 23.3 10^3/uL (4.0-10.5)
[2017-07-26 08:41] LABS: ANION GAP 8 (5-19); BLOOD UREA NITROGEN 28 mg/dL (7-20); CALCIUM 9.2 mg/dL (8.4-10.2); CARBON DIOXIDE 30 mmol/L (22-30); CHLORIDE 102 mmol/L (98-107); CREATINE KINASE 88 U/L (30-135); GLUCOSE 154 mg/dL (75-110); POTASSIUM 4.9 mmol/L (3.6-5.0); SODIUM 140.4 mmol/L (137-145)
[2017-07-26 08:52] LABS: CREATINE KINASE MB 5.86 ng/mL (<4.55)
[2017-07-26 08:54] LABS: TROPONIN I < 0.012 ng/mL
[2017-07-26] MEDS: METHYLPREDNISOLONE INJ 125 MG/2 ML SDV IV SCH ×2 (09:32→21:14)
[2017-07-26] MEDS: LEVOFLOXACIN 750 MG TABLET PO SCH (09:32)
[2017-07-26] MEDS: MONTELUKAST SODIUM 10 MG TABLET PO SCH (09:32)
[2017-07-26] MEDS: ENOXAPARIN SODIUM INJ 40 MG/0.4 ML DISP.SYRIN SUBCUT SCH (09:32)
[2017-07-26] MEDS: PANTOPRAZOLE SODIUM 40 MG VIAL IV SCH ×2 (09:35→21:15)
[2017-07-26] MEDS: NYSTATIN 500000 UNIT/5 ML UDCUP PO SCH ×3 (14:55→21:14)
[2017-07-26 15:27] LABS: CREATINE KINASE MB 7.22 ng/mL (<4.55)
[2017-07-26 15:31] LABS: TROPONIN I < 0.012 ng/mL
[2017-07-26] MEDS ORDERED: GLUCAGON,HUMAN RECOMB 1 MG INJ IM PRN (15:38)
[2017-07-26] MEDS ORDERED: DEXTROSE 50%-WATER 25 GM/50 ML DISP.SYRIN IV PRN ×2 (15:38)
[2017-07-26] MEDS ORDERED: DEXTROSE 40% GEL 15 GM TUBE PO PRN ×2 (15:38)
--- NOTE | 2017-07-26 15:47 | PDOC PROGRESS REPORT ---
Subjective Progress Note for:: 07/26/17 Subjective:: Patient is breathing better today. No pleuritic chest pain. Chest discomfort and wheezing are improving. Eating and drinking without difficulty. No nausea or vomiting. No diaphoresis. No fever or chills. He is able to get up to the restroom and it takes her little while to recover from a breathing perspective. Reason For Visit: COPD WITH EXACERBATION,ACUTE HYPOXEMIC RESPIRATORY Physical Exam Vital Signs: Temp Pulse Resp BP Pulse Ox 98.4 F 79 16 145/76 H 98 07/26/17 07:35 07/26/17 14:03 07/26/17 14:03 07/26/17 07:35 07/26/17 14:03 Intake & Output 07/25/17 07/26/17 07/27/17 05:59 06:59 06:59 Intake Total Balance Weight General appearance: PRESENT: no acute distress, cooperative, obese Eye exam: PRESENT: conjunctiva pink, EOMI Mouth exam: PRESENT: moist, tongue midline Respiratory exam: PRESENT: wheezes. ABSENT: rales, rhonchi, unlabored Cardiovascular exam: PRESENT: tachycardia. ABSENT: systolic murmur GI/Abdominal exam: PRESENT: normal bowel sounds, soft. ABSENT: distended, guarding, tenderness Extremities exam: ABSENT: pedal edema Neurological exam: PRESENT: alert, awake, oriented to person, oriented to place , oriented to situation, CN II-XII grossly intact Psychiatric exam: PRESENT: appropriate affect. ABSENT: anxious Skin exam: PRESENT: dry, intact, warm Results Laboratory Results: 07/26/17 07:57 07/26/17 07:57 07/25/17 07/26/17 07/26/17 07:16 07:57 07:57 WBC 23.3 H RBC 4.68 Hgb 13.6 Hct 40.4 MCV 86 MCH 29.0 MCHC 33.6 RDW 14.0 Plt Count 294 Sodium 140.4 Potassium 4.9 Chloride 102 Carbon Dioxide 30 Anion Gap 8 BUN 28 H Creatinine 0.93 Est GFR ( Amer) > 60 Est GFR (Non-Af Amer) > 60 Glucose 154 H Calcium 9.2 TSH 0.93 07/24/17 07/24/17 07/24/17 12:13 12:13 17:30 Creatine Kinase 80 89 CK-MB (CK-2) 3.41 Troponin I < 0.012 NT-Pro-B Natriuret Pep 212 07/24/17 07/24/17 07/24/17 17:30 23:54 23:54 Creatine Kinase 89 CK-MB (CK-2) 3.76 4.38 Troponin I < 0.012 < 0.012 NT-Pro-B Natriuret Pep 07/26/17 07/26/17 07/26/17 07:57 07:57 14:17 Creatine Kinase 88 119 CK-MB (CK-2) 5.86 H Troponin I < 0.012 NT-Pro-B Natriuret Pep 07/26/17 14:17 Creatine Kinase CK-MB (CK-2) 7.22 H Troponin I < 0.012 NT-Pro-B Natriuret Pep Impressions: Chest X-Ray 07/24/17 09:25 IMPRESSION: NO ACUTE RADIOGRAPHIC FINDING IN THE CHEST. Chest/Abdomen CTA 07/24/17 11:03 IMPRESSION: No PE. No acute findings. Assessment & Plan - Diagnosis (1) Pneumonia, community acquired Qualifiers: Laterality: unspecified laterality Qualified Code(s): J18.9 - Pneumonia, unspecified organism Is this a current diagnosis for this admission?: Yes Plan: Patient is overall improving. Continue her Levaquin and titrate oxygen down as we are able. Currently satting 96-98% on 2 L. More short of breath with ambulation. Will continue to monitor and wean as appropriate. (2) COPD with exacerbation Is this a current diagnosis for this admission?: Yes Plan: Slowly improving. I down titrated her Solu-Medrol to 60 mg IV every 12 hours. Using is improving. She has improved air movement. Will continue around-the- clock and as needed bronchodilators. Will continue antibiotics. Have encouraged tobacco cessation. (3) Acute hypoxemic respiratory failure Is this a current diagnosis for this admission?: Yes Plan: Resolving. Treat underlying pneumonia and COPD exacerbation. Will try to titrate oxygen off within the next 24 hours. (4) Tobacco use disorder, continuous Is this a current diagnosis for this admission?: Yes Plan: Cessation is being encouraged. (5) Diabetes Qualifiers: Diabetes mellitus type: type 2 Is this a current diagnosis for this admission?: Yes Plan: Patient has diabetes. Hemoglobin A1c just barely elevated. Her doctor is recommended that she use medication but she has been reluctant and has been trying to lose weight. I do recommend that she start metformin. Here in the hospital her CBGs are more elevated than usual secondary to steroids. I have added a meal dose to the bolus dosing short acting insulin. Will titrate steroids down as quickly as we can. Will change diet to diabetic. (6) Leukocytosis Is this a current diagnosis for this admission?: Yes Plan: This is likely secondary to high steroid use. We will continue to monitor and if leukocytosis does not improve with decreasing steroids will need to continue workup. Patient does not seem to be getting worse from an infectious perspective. - Time Time Spent with patient: 25-34 minutes Medications reviewed and adjusted accordingly: Yes - Inpatient Certification Based on my medical assessment, after consideration of the patient's comorbidities, presenting symptoms, or acuity I expect that the services needed warrant INPATIENT care.: Yes I certify that my determination is in accordance with my understanding of Medicare's requirements for reasonable and necessary INPATIENT services [42 CFR 412.3e].: Yes Medical Necessity: Need Close Monitoring Due to Risk of Patient Decompensation, Risk of Complication if Not Cared For in Hospital
--- NOTE | 2017-07-26 17:25 | PDOC CONSULTATION ---
Consultation Consult Date: 07/26/17 Attending physician:: ADARSH NIX Consult reason:: Abnormal cardiac enzymes History of Present Illness Admission Date/PCP: 07/24/17 10:57 LESA MI MD Patient complains of: Shortness of breath History of Present Illness: MANI CRISOSTOMO is a 62 year old female who has a long-standing history of tobacco use disorder. She reports that recently she had the flu. She was out of work for about a week. She states that with the recent strange weather including heat followed by extreme cold followed by when she feels that her body just could not keep up and she started having difficulty breathing. She is been seen at her primary care doctor's office for the last few days and states that she has been receiving steroids and IM ceftriaxone 2 doses. Today she went to her primary care doctor for follow-up and secondary to significant dyspnea she was sent to the ER. In the ER she had a CTA to rule out pulmonary embolus. She received steroids and nebulizer. She is being admitted for COPD exacerbation, though she has never been diagnosed with COPD. Given her tobacco history this is the most likely diagnosis. Today she has started to expectorate dark yellow phlegm. No fevers or chills though she has been very fatigued. No chest pain. No abdominal pain nausea or vomiting. This history obtained by Dr. Nix was reviewed and confirmed. Patient on repeated questioning denied any chest discomfort to me. However she is noted to have positive troponin I therefore I was asked to evaluate patient. Patient has history of chronic smoking and gives family history of premature coronary artery disease. Past Medical History Cardiac Medical History: Reports: Hypertension - NO LONGER ON MEDS Denies: Coronary Artery Disease, Myocardial Infarction Pulmonary Medical History: Reports: Asthma, Bronchitis, Chronic Obstructive Pulmonary Disease (COPD), Pneumonia EENT Medical History: Reports: None Neurological Medical History: Denies: Ischemic CVA, Seizures Endocrine Medical History: Denies: Diabetes Mellitus Type 2 Renal/ Medical History: Denies: Chronic Kidney Disease Malignancy Medical History: Reports: None GI Medical History: Reports: None Musculoskeltal Medical History: Reports: Arthritis - FINGERS, HIPS Skin Medical History: Reports: Other - Patient has had 2 basal cell carcinomas excised Psychiatric Medical History: Reports: Tobacco Dependency Denies: Alcohol Dependency, Substance Abuse Hematology: Denies: Anemia, Bleeding Tendencies Infectious Medical History: Reports: None Past Surgical History Past Surgical History: Reports: Hysterectomy, Other - Breast implants, dental posts, 2 basal cell carcinoma removals Social History Information Source: Patient Lives with: Family Smoking Status: Current Every Day Smoker Cigarettes Packs Per Day: 1 Number of Years Smokin Frequency of Alcohol Use: None Hx Recreational Drug Use: No Drugs: None Hx Prescription Drug Abuse: No - Advance Directive Resuscitation Status: Full Code Surrogate healthcare decision maker:: Patient spouse is the surrogate decision-maker Family History Family History: CAD, Malignancy Parental Family History Reviewed: Yes Children Family History Reviewed: Yes Sibling(s) Family History Reviewed.: Yes Medication/Allergy Home Medications: Albuterol Sulfate [Ventolin 0.083% Neb 2.5 mg/3 ml Ampul] 1 vial NEB [id number] PRN 07/24/17 Azithromycin [Zithromax] 250 mg PO DAILY 07/24/17 Ergocalciferol (Vitamin D2) [Vitamin D2] 50,000 unit PO TH@1000 07/24/17 Fluticasone/Salmeterol [Advair 500-50 Diskus 28 Dose] 1 inh IH Q12 07/24/17 Hydrocodone/Chlorphen P-Stirex [Tussionex Pennkinetic Susp] 5 ml PO Q12 Montelukast Sodium [Singulair 10 mg Tablet] 10 mg PO DAILY 07/24/17 Pantoprazole Sodium [Protonix] 40 mg PO Q6AM 07/24/17 Prednisone [Deltasone 20 mg Tablet] 60 mg PO DAILY 07/24/17 Allergies/Adverse Reactions: bacitracin Allergy (Verified 07/24/17 16:49) Review of Systems Review of Systems: Please see history of present illness and past medical history as wall. Constitutional: No fever or chills reported. Head : No recent chronic headaches, recent head injury. Eyes: No recent eye pain, diplopia, redness, discharge, acute visual changes. Ears: No recent chronic ear pain, acute hearing loss, ear discharge. Oral cavity: No recent ulcerations, bleeding, oral cavity discomfort. Neck: No recent acute neck pain reported. Hematologic: No recent easy bruising or bleeding or hematologic malignancy reported. Lymphatic: No recent lymphatic malignancy, chronic lymphadenopathy reported yet Cardiovascular system review: See history of present illness. Respiratory system review: History of intermittent cough because of smoking. Denies hemoptysis, blood clots in the lungs reported. Mild Shortness of breath on exertion Gastrointestinal system review: Negative for any recent acute or chronic abdominal pain, hematemesis, melena, recent change in bowel habits. Genitourinary system review: No recent acute or chronic hematuria, flank pain, UTI etc. reported. Skin system review: Negative for any recent abnormal bruising, no rash, no pruritus reported. Neurologic: No prior history of strokes, mini strokes, seizure disorder. Psychologic: No history of major psychosis or major depression reported. Musculoskeletal: Minor aches and pains reported. No acute joint swelling reported. Endocrine: No recent polyuria, polydipsia, recent heat or cold intolerance. Physical Exam Vital Signs: Temp Pulse Resp BP Pulse Ox 98.4 F 79 16 145/76 H 98 07/26/17 07:35 07/26/17 14:03 07/26/17 14:03 07/26/17 07:35 07/26/17 14:03 Intake & Output 07/25/17 07/26/17 07/27/17 05:59 06:59 06:59 Intake Total Balance Weight Exam: GENERAL: well-nourished and in no acute distress. Alert and oriented x3 HEAD: Atraumatic, normocephalic. EYES: Pupils equal round and reactive to light, extraocular movements intact, sclera anicteric, conjunctiva are normal. ENT: TMs normal, nares patent, oropharynx clear without exudates. Moist mucous membranes. No oral ulcerations or bleeding gums noted NECK: supple without lymphadenopathy. Trachea is central. No cervical or axillary lymphadenopathy noted. Carotids are 2+, JVD WNL LUNGS: Respiration seems nonlabored, no significant accessory muscle action noted. Bilateral wheezes rales or rhonchi noted. No significant dullness noted on percussion. CHEST: Palpation of the chest wall shows no significant chest wall tenderness. No other significant abnormalities noted. 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 ABDOMEN: Soft, no significant tenderness appreciated, normoactive bowel sounds. No guarding, no rebound. No rigidity noted . No masses appreciated. EXTREMITIES: Pedal pulses are 1-2+, no calf tenderness noted. No clubbing or cyanosis.trace to 1+ pedal edema noted NEUROLOGICAL: Focused neurological exam showed no significant neurologic deficit. Normal speech, no focal weakness appreciated. PSYCH: Normal mood, normal affect. Judgment and insight within normal limits. SKIN: No significant ecchymosis, skin is noted to be warm. MUSCULOSKELETAL EXAM: No significant acute joint swelling noted. Results Laboratory Results: 07/26/17 07:57 07/26/17 07:57 07/26/17 07/26/17 07:57 07:57 WBC 23.3 H RBC 4.68 Hgb 13.6 Hct 40.4 MCV 86 MCH 29.0 MCHC 33.6 RDW 14.0 Plt Count 294 Sodium 140.4 Potassium 4.9 Chloride 102 Carbon Dioxide 30 Anion Gap 8 BUN 28 H Creatinine 0.93 Est GFR ( Amer) > 60 Est GFR (Non-Af Amer) > 60 Glucose 154 H Calcium 9.2 07/24/17 07/24/17 07/24/17 12:13 12:13 17:30 Creatine Kinase 80 89 CK-MB (CK-2) 3.41 Troponin I < 0.012 NT-Pro-B Natriuret Pep 212 07/24/17 07/24/17 07/24/17 17:30 23:54 23:54 Creatine Kinase 89 CK-MB (CK-2) 3.76 4.38 Troponin I < 0.012 < 0.012 NT-Pro-B Natriuret Pep 07/26/17 07/26/17 07/26/17 07:57 07:57 14:17 Creatine Kinase 88 119 CK-MB (CK-2) 5.86 H Troponin I < 0.012 NT-Pro-B Natriuret Pep 07/26/17 14:17 Creatine Kinase CK-MB (CK-2) 7.22 H Troponin I < 0.012 NT-Pro-B Natriuret Pep EKG Comments: Sinus rhythm, no acute ST-T wave changes noted. Impressions: Chest X-Ray 07/24/17 09:25 IMPRESSION: NO ACUTE RADIOGRAPHIC FINDING IN THE CHEST. Chest/Abdomen CTA 07/24/17 11:03 IMPRESSION: No PE. No acute findings. Assessment & Plan - Diagnosis (1) Abnormal cardiac enzyme level Is this a current diagnosis for this admission?: Yes (2) Acute hypoxemic respiratory failure Is this a current diagnosis for this admission?: Yes (3) COPD with exacerbation Is this a current diagnosis for this admission?: Yes (4) Diabetes Qualifiers: Diabetes mellitus type: type 2 Diabetes mellitus skilled nursing insulin use: unspecified intermediate card tender insulin use status Diabetes mellitus complication status : without complication Qualified Code(s): E11.9 - Type 2 diabetes mellitus without complications Is this a current diagnosis for this admission?: Yes (5) Tobacco use disorder, continuous Is this a current diagnosis for this admission?: Yes - Notes Notes: Abnormal cardiac enzyme: Patient has elevation of CKMB., troponin I is WNL EKG is not showing any acute ST-T wave changes. Feel that cardiac enzyme elevation could be related to diaphragmatic muscle fatigue, which can release some CK-MB. However patient does have significant cardiac risk factors therefore will recommend running one more set of cardiac enzymes and EKG. Once patient pulmonary status improves will consider ischemia workup. Acute hypoxemic respiratory failure: This has improved. Continue with oxygen supplementation and bronchodilator therapy as well as antibiotics as needed. COPD exacerbation: Plans as per under acute hypoxemic respiratory failure. Diabetes: Recommend good control of blood sugar but avoid any hyper or hypoglycemia. Tobacco abuse disorder: Patient advised to quit smoking. For risk assessment, will obtain a lipid panel. Will also order a 2D echo if this has not been done this admission. - Time Time Spent: 30 to 50 Minutes - CODE STATUS was discussed, patient remains full code. Surrogate decision-maker unchanged. Multiple medical problems were addressed. More than 50% of the time spent coordinating care, discussing management plans with involved caregivers. Management plans discussed with involved personnels. Medical decision making was of moderate to high complexity , patient's has multiple comorbidities. Medications reviewed and adjusted accordingly: Yes
[2017-07-26 17:51] LABS: CHOLESTEROL 202.12 mg/dL (0-200); TRIGLYCERIDES 181 mg/dL (<150)
[2017-07-26 18:01] LABS: DIRECT LDL 106 mg/dL (<100)
[2017-07-26 18:04] LABS: VLDL CHOLESTEROL 36.2 mg/dL (10-31)
[2017-07-26] MEDS: INSULIN LISPRO 100 UNIT/ML 3 ML VIAL SUBCUT SCH (18:25)
[2017-07-26] MEDS: INSULIN LISPRO 100 UNIT/ML 3 ML VIAL SUBCUT PRN (18:25)
[2017-07-26 18:43] LABS: CREATINE KINASE MB 7.87 ng/mL (<4.55)
[2017-07-26 18:49] LABS: TROPONIN I < 0.012 ng/mL
[2017-07-26] MEDS: ATORVASTATIN CALCIUM 20 MG TABLET PO SCH (21:14)
[2017-07-26] MEDS ORDERED: CHLORPHEN P STIREX PO SCH (22:00)
[2017-07-26] MEDS ORDERED: [UNRECOGNIZED DRUG - OTHER] PO SCH (22:00)
[2017-07-26] MEDS ORDERED: HYDROCODONE PO SCH (22:00)
--- NOTE | 2017-07-26 22:02 | EKG REPORT ---
SEVERITY:- ABNORMAL ECG - SINUS RHYTHM RIGHT ATRIAL ABNORMALITY : Confirmed by: Telly Powell 26-Jul-2017 22:01:17
--- NOTE | 2017-07-26 22:03 | EKG REPORT ---
SEVERITY:- ABNORMAL ECG - SINUS RHYTHM BLANK, CONSIDER BIATRIAL ABNORMALITIES : Confirmed by: Telly Powell 26-Jul-2017 22:02:51
[2017-07-26 22:34] LABS: CREATINE KINASE MB 7.93 ng/mL (<4.55)
[2017-07-26 22:39] LABS: TROPONIN I < 0.012 ng/mL
[2017-07-27] MEDS: IPRATROPIUM/ALBUTEROL 0.5-2.5 MG/3 ML AMPUL NEB SCH ×3 (08:37→20:22)
[2017-07-27] MEDS: INSULIN LISPRO 100 UNIT/ML 3 ML VIAL SUBCUT SCH ×3 (09:12→16:48)
[2017-07-27] MEDS: INSULIN LISPRO 100 UNIT/ML 3 ML VIAL SUBCUT PRN ×3 (09:12→22:27)
[2017-07-27] MEDS: MONTELUKAST SODIUM 10 MG TABLET PO SCH (09:29)
[2017-07-27] MEDS: ENOXAPARIN SODIUM INJ 40 MG/0.4 ML DISP.SYRIN SUBCUT SCH (09:29)
[2017-07-27] MEDS: LEVOFLOXACIN 750 MG TABLET PO SCH (09:29)
[2017-07-27] MEDS: NYSTATIN 500000 UNIT/5 ML UDCUP PO SCH ×4 (09:29→22:26)
[2017-07-27] MEDS: METHYLPREDNISOLONE INJ 125 MG/2 ML SDV IV SCH (09:30)
[2017-07-27] MEDS: PANTOPRAZOLE SODIUM 40 MG VIAL IV SCH (09:30)
[2017-07-27 12:53] LABS: HEMATOCRIT 42.4 % (36.0-47.0); HEMOGLOBIN 14.6 g/dL (12.0-15.5); MEAN CORPUSCULAR HEMOGLOBIN 29.4 pg (27.0-33.4); MEAN CORPUSCULAR HGB CONC 34.3 g/dL (32.0-36.0); MEAN CORPUSCULAR VOLUME 86 fl (80-97); PLATELET COUNT 312 10^3/uL (150-450); RED BLOOD COUNT 4.95 10^6/uL (3.72-5.28); RED CELL DISTRIBUTION WIDTH 14.3 % (11.5-14.0)
[2017-07-27 13:12] LABS: ANION GAP 8 (5-19); BLOOD UREA NITROGEN 28 mg/dL (7-20); CALCIUM 9.6 mg/dL (8.4-10.2); CARBON DIOXIDE 28 mmol/L (22-30); CHLORIDE 102 mmol/L (98-107); GLUCOSE 101 mg/dL (75-110); POTASSIUM 4.7 mmol/L (3.6-5.0); SODIUM 138.4 mmol/L (137-145)
[2017-07-27 13:22] LABS: TROPONIN I < 0.012 ng/mL
[2017-07-27] MEDS ORDERED: METHYLPREDNISOLONE INJ 40 MG/1 ML SDV IV SCH (14:00)
--- NOTE | 2017-07-27 18:48 | XCELERA REPORT ---
[address] [address] Transthoracic Echocardiogram Report Name: MANI CRISOSTOMO Age: 62 yrs Gender: Female : 1955 Patient Status: Inpatient Patient Location: [address] [place] [address] Study Date: 07/27/2017 01:40 PM Height: 60 in Weight: 179 lb BSA: 1.8 m2 Procedure: A complete two-dimensional transthoracic echocardiogram was performed (2D, M-mode, spectral and color flow Doppler). The study was technically difficult with many images being suboptimal in quality. Reason For Study: Respiratory distress Ordering Physician: TELLY AMBROSIO Performed By: Macie Ventura Interpretation Summary The study was technically difficult with many images being suboptimal in quality. The left ventricular ejection fraction is normal. There is normal left ventricular wall thickness. The left ventricle is grossly normal size. Doppler measurements suggest pseudonormalized left ventricular relaxation, which is associated with grade II/IV or mild to moderate diastolic dysfunction Wall motion cannot be accurately commented on, but no definite regional wall motion abnormalities noted. The right ventricular systolic function is normal. The left atrial size is normal. The right atrium is normal in size There is a trace amount of mitral regurgitation There is no mitral valve stenosis. No aortic regurgitation is present. There is no aortic valve stenosis There is a trace or physiologic amount of tricuspid regurgitation Tricuspid regurgitation jet envelope not well defined to measure RV systolic pressure accurately. The aortic root is not well visualized but is probably normal size. The inferior vena cava appeared normal and decreased > 50% with respiration (RAP 5-10 mmHg) There is no pericardial effusion. MMode/2D Measurements & Calculations RVDd: 2.1 cm LVIDd: 4.0 cm FS: 42.8 % Ao root diam: 2.6 cm IVSd: 0.86 cm LVIDs: 2.3 cm EDV(Teich): 68.6 ml LVPWd: 0.79 cm ESV(Teich): 17.5 ml Ao root area: 5.3 cm2 EF(Teich): 74.5 % LA dimension: 2.7 cm Doppler Measurements & Calculations MV E max aviva: MV P1/2t max aviva: Ao V2 max: LV V1 max P.1 cm/sec 108.1 cm/sec 202.6 cm/sec 5.0 mmHg MV A max aviva: MV P1/2t: 66.9 msec Ao max PG: LV V1 max: 89.3 cm/sec 16.4 mmHg 111.5 cm/sec MV E/A: 1.2 MVA(P1/2t): 3.3 cm2 MV dec slope: 473.1 cm/sec2 MV dec time: 0.23 sec PA V2 max: 107.1 cm/sec PA max P.6 mmHg Left Ventricle The left ventricle is grossly normal size. There is normal left ventricular wall thickness. The left ventricular ejection fraction is normal. Doppler measurements suggest pseudonormalized left ventricular relaxation, which is associated with grade II/IV or mild to moderate diastolic dysfunction. Wall motion cannot be accurately commented on, but no definite regional wall motion abnormalities noted. Right Ventricle The right ventricle is grossly normal size. There is normal right ventricular wall thickness. The right ventricular systolic function is normal. Atria The right atrium is normal in size. The left atrial size is normal. Interarterial septum not well visualized and not well dopplered. Cannot comment on ASD/PFO presence. Mitral Valve The mitral valve is grossly normal. There is no mitral valve stenosis. There is a trace amount of mitral regurgitation. Aortic Valve The aortic valve is not well visualized secondary to technical limitations. There is no aortic valve stenosis. No aortic regurgitation is present. Tricuspid Valve The tricuspid valve is not well visualized secondary to technical limitations. There is no tricuspid stenosis. There is a trace or physiologic amount of tricuspid regurgitation. Tricuspid regurgitation jet envelope not well defined to measure RV systolic pressure accurately. Pulmonic Valve The pulmonic valve is not well visualized. Great Vessels The aortic root is not well visualized but is probably normal size. The inferior vena cava appeared normal and decreased > 50% with respiration (RAP 5-10 mmHg). Effusions There is no pericardial effusion. : TELLY AMBROSIO > Telly Ambrosio
--- NOTE | 2017-07-27 20:12 | PDOC PROGRESS REPORT ---
Subjective Progress Note for:: 07/27/17 Subjective:: Patient seems to be doing better with gradual improvement. Patient still short of breath but wheezing is better. Pt is denying any chest arm or neck discomfort. Patient denying any PND, orthopnea. Patient denied any sustained palpitations, dizziness, syncope, near syncope. Patient denying any fever chills. Patient denying any other significant discomfort. Patient is maintaining sinus rhythm. Review of systems: Rest review of systems negative. Medications: Medications have been reviewed. Reason For Visit: COPD WITH EXACERBATION,ACUTE HYPOXEMIC RESPIRATORY Physical Exam Vital Signs: Temp Pulse Resp BP Pulse Ox 98.0 F 96 16 148/68 H 94 07/27/17 15:19 07/27/17 15:19 07/27/17 15:19 07/27/17 15:19 07/27/17 15:19 Intake & Output 07/26/17 07/27/17 07/28/17 06:59 06:59 06:59 Intake Total 1717 1130 Balance 1717 1130 Weight 83.5 kg Exam: GENERAL: well-nourished and in no acute distress. Alert and oriented x3 HEAD: Atraumatic, normocephalic. EYES: Pupils equal round and reactive to light, extraocular movements intact, sclera anicteric, conjunctiva are normal. ENT: TMs normal, nares patent, oropharynx clear without exudates. Moist mucous membranes. No oral ulcerations or bleeding gums noted NECK: supple without lymphadenopathy. Trachea is central. No cervical or axillary lymphadenopathy noted. Carotids are 2+, JVD WNL LUNGS: Respiration seems nonlabored, no significant accessory muscle action noted. Bilateral fine wheezes rales or rhonchi noted. No significant dullness noted on percussion. CHEST: Palpation of the chest wall shows no significant chest wall tenderness. No other significant abnormalities noted. 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 ABDOMEN: Soft, no significant tenderness appreciated, normoactive bowel sounds. No guarding, no rebound. No rigidity noted . No masses appreciated. EXTREMITIES: Pedal pulses are 1-2+, no calf tenderness noted. No clubbing or cyanosis.trace to 1+ pedal edema noted NEUROLOGICAL: Focused neurological exam showed no significant neurologic deficit. Normal speech, no focal weakness appreciated. PSYCH: Normal mood, normal affect. Judgment and insight within normal limits. SKIN: No significant ecchymosis, skin is noted to be warm. MUSCULOSKELETAL EXAM: No significant acute joint swelling noted. Results Laboratory Results: 07/27/17 12:18 07/27/17 12:18 07/27/17 07/27/17 12:18 12:18 WBC 23.0 H RBC 4.95 Hgb 14.6 Hct 42.4 MCV 86 MCH 29.4 MCHC 34.3 RDW 14.3 H Plt Count 312 Sodium 138.4 Potassium 4.7 Chloride 102 Carbon Dioxide 28 Anion Gap 8 BUN 28 H Creatinine 0.87 Est GFR ( Amer) > 60 Est GFR (Non-Af Amer) > 60 Glucose 101 Calcium 9.6 07/24/17 07/24/17 07/24/17 12:13 12:13 17:30 Creatine Kinase 80 89 CK-MB (CK-2) 3.41 Troponin I < 0.012 NT-Pro-B Natriuret Pep 212 07/24/17 07/24/17 07/24/17 17:30 23:54 23:54 Creatine Kinase 89 CK-MB (CK-2) 3.76 4.38 Troponin I < 0.012 < 0.012 NT-Pro-B Natriuret Pep 07/26/17 07/26/17 07/26/17 07:57 07:57 14:17 Creatine Kinase 88 119 CK-MB (CK-2) 5.86 H Troponin I < 0.012 NT-Pro-B Natriuret Pep 07/26/17 07/26/17 07/26/17 14:17 17:45 17:45 Creatine Kinase 124 CK-MB (CK-2) 7.22 H 7.87 H Troponin I < 0.012 < 0.012 NT-Pro-B Natriuret Pep 07/26/17 07/26/17 07/27/17 21:57 21:57 12:18 Creatine Kinase 141 H 108 CK-MB (CK-2) 7.93 H Troponin I < 0.012 NT-Pro-B Natriuret Pep 07/27/17 12:18 Creatine Kinase CK-MB (CK-2) 6.10 H Troponin I < 0.012 NT-Pro-B Natriuret Pep EKG Comments: Shows sinus rhythm with mild intermittent sinus tachycardia. No significant cardiac dysrhythmias noted. Impressions: Chest X-Ray 07/24/17 09:25 IMPRESSION: NO ACUTE RADIOGRAPHIC FINDING IN THE CHEST. Chest/Abdomen CTA 07/24/17 11:03 IMPRESSION: No PE. No acute findings. Assessment & Plan - Diagnosis (1) Abnormal cardiac enzyme level Is this a current diagnosis for this admission?: Yes (2) Acute hypoxemic respiratory failure Is this a current diagnosis for this admission?: Yes (3) COPD with exacerbation Is this a current diagnosis for this admission?: Yes (4) Diabetes Qualifiers: Diabetes mellitus type: type 2 Diabetes mellitus long-term insulin use: unspecified long-term insulin use status Diabetes mellitus complication status : without complication Qualified Code(s): E11.9 - Type 2 diabetes mellitus without complications Is this a current diagnosis for this admission?: Yes (5) Tobacco use disorder, continuous Is this a current diagnosis for this admission?: Yes - Notes Notes: Total elevation of CK-MB with normal troponin I: Most likely related to diaphragmatic muscle fatigue in patients with severe COPD and asthma is well described. At this point primary aim with be to improve her pulmonary status. 2D echo was reviewed. It shows normal LVEF. No significant valvular abnormalities noted. I believe grade 2 diastolic dysfunction was noted. Acute hypoxemic respiratory failure: Patient seems to be improving. Diabetes: Under satisfactory control. Tobacco abuse disorder: Patient now claims that she is able to quit smoking and is willing to do so. - Time Time with patient: 15-25 minutes - CODE STATUS was discussed, patient remains full code. Surrogate decision-maker unchanged. Multiple medical problems were addressed. More than 50% of the time spent coordinating care, discussing management plans with involved caregivers. Management plans discussed with involved personnels. Medical decision making was of moderate to high complexity , patient's has multiple comorbidities. Medications reviewed and adjusted accordingly: Yes
--- NOTE | 2017-07-27 21:22 | PDOC PROGRESS REPORT ---
Subjective Progress Note for:: 07/27/17 Subjective:: Patient states she is feeling better today. She is able to move about more easily. He is eating and drinking well. She has been out of bed to chair for several hours. She is moving her bowels.. No chest pain. No hemoptysis. Reason For Visit: COPD WITH EXACERBATION,ACUTE HYPOXEMIC RESPIRATORY Physical Exam Vital Signs: Temp Pulse Resp BP Pulse Ox 98.3 F 76 16 152/73 H 95 07/27/17 19:53 07/27/17 20:21 07/27/17 20:21 07/27/17 19:53 07/27/17 20:21 Intake & Output 07/26/17 07/27/17 07/28/17 06:59 06:59 06:59 Intake Total 1717 1130 Balance 1717 1130 Weight 83.5 kg General appearance: PRESENT: no acute distress, obese Head exam: PRESENT: atraumatic, normocephalic Eye exam: PRESENT: conjunctiva pink Mouth exam: PRESENT: moist, tongue midline Respiratory exam: PRESENT: decreased breath sounds, prolonged expiratory phas, unlabored, wheezes. ABSENT: rales, rhonchi GI/Abdominal exam: PRESENT: normal bowel sounds, soft. ABSENT: distended, guarding, tenderness Extremities exam: ABSENT: pedal edema Neurological exam: PRESENT: alert, awake, oriented to person, oriented to place , oriented to situation, CN II-XII grossly intact Skin exam: PRESENT: dry, warm Results Laboratory Results: 07/27/17 12:18 07/27/17 12:18 07/27/17 07/27/17 12:18 12:18 WBC 23.0 H RBC 4.95 Hgb 14.6 Hct 42.4 MCV 86 MCH 29.4 MCHC 34.3 RDW 14.3 H Plt Count 312 Sodium 138.4 Potassium 4.7 Chloride 102 Carbon Dioxide 28 Anion Gap 8 BUN 28 H Creatinine 0.87 Est GFR ( Amer) > 60 Est GFR (Non-Af Amer) > 60 Glucose 101 Calcium 9.6 07/24/17 07/24/17 07/24/17 12:13 12:13 17:30 Creatine Kinase 80 89 CK-MB (CK-2) 3.41 Troponin I < 0.012 NT-Pro-B Natriuret Pep 212 03/02/0207/24/17 07/24/17 17:30 23:54 23:54 Creatine Kinase 89 CK-MB (CK-2) 3.76 4.38 Troponin I < 0.012 < 0.012 NT-Pro-B Natriuret Pep 07/26/17 07/26/17 07/26/17 07:57 07:57 14:17 Creatine Kinase 88 119 CK-MB (CK-2) 5.86 H Troponin I < 0.012 NT-Pro-B Natriuret Pep 07/26/17 07/26/17 07/26/17 14:17 17:45 17:45 Creatine Kinase 124 CK-MB (CK-2) 7.22 H 7.87 H Troponin I < 0.012 < 0.012 NT-Pro-B Natriuret Pep 07/26/17 07/26/17 07/27/17 21:57 21:57 12:18 Creatine Kinase 141 H 108 CK-MB (CK-2) 7.93 H Troponin I < 0.012 NT-Pro-B Natriuret Pep 07/27/17 12:18 Creatine Kinase CK-MB (CK-2) 6.10 H Troponin I < 0.012 NT-Pro-B Natriuret Pep Impressions: Chest X-Ray 07/24/17 09:25 IMPRESSION: NO ACUTE RADIOGRAPHIC FINDING IN THE CHEST. Chest/Abdomen CTA 07/24/17 11:03 IMPRESSION: No PE. No acute findings. Assessment & Plan - Diagnosis (1) Pneumonia, community acquired Qualifiers: Laterality: unspecified laterality Qualified Code(s): J18.9 - Pneumonia, unspecified organism Is this a current diagnosis for this admission?: Yes Plan: Improving from this perspective. We will continue current antibiotics. Monitor respiratory status closely. Her leukocytosis persists but I think this is secondary to steroids. Will recheck CBC in the morning. Afebrile. (2) COPD with exacerbation Is this a current diagnosis for this admission?: Yes Plan: Her breathing is improving. I have been able to titrate steroids down. She is now on Solu-Medrol 40 mg IV every 12. Continue antibiotics. Continue bronchodilators. (3) Acute hypoxemic respiratory failure Is this a current diagnosis for this admission?: Yes Plan: Secondary to COPD exacerbation and pneumonia. Will continue to treat underlying causes. We will titrate oxygen as we are able. (4) Tobacco use disorder, continuous Is this a current diagnosis for this admission?: Yes Plan: Tobacco cessation counseling has been performed. (5) Diabetes Qualifiers: Diabetes mellitus type: type 2 Diabetes mellitus detention insulin use: unspecified photoengraving helper insulin use status Diabetes mellitus complication status : without complication Qualified Code(s): E11.9 - Type 2 diabetes mellitus without complications Is this a current diagnosis for this admission?: Yes Plan: CBGs are generally well controlled the seated she does spike a bit. Will continue current care and anticipate her CBGs to improve once steroids are titrated off. I have had a diabetic education discussion with her and recommended that she be discharged on medications for diabetes and her hemoglobin A1c. (6) Leukocytosis Is this a current diagnosis for this admission?: Yes Plan: Persistent. Probably related to both infection and steroid use. Afebrile. We will continue to treat COPD exacerbation and pneumonia and recheck CBC in the morning. (7) Hypertension Is this a current diagnosis for this admission?: Yes Plan: Blood pressure continues to be above normal. I have added amlodipine 5 mg daily to her regimen today we will check her blood pressure tomorrow and titrate or add medications as indicated to improve her blood pressure. (8) Elevated CK-MB level Is this a current diagnosis for this admission?: Yes Plan: Probably related to diaphragmatic injury given her COPD exacerbation and dyspnea. Her troponins have remained normal and it does not appear that she is having an acute coronary syndrome. Cardiology was consulted to evaluate. - Time Time Spent with patient: 15-24 minutes Medications reviewed and adjusted accordingly: Yes - Inpatient Certification Based on my medical assessment, after consideration of the patient's comorbidities, presenting symptoms, or acuity I expect that the services needed warrant INPATIENT care.: Yes I certify that my determination is in accordance with my understanding of Medicare's requirements for reasonable and necessary INPATIENT services [42 CFR 412.3e].: Yes Medical Necessity: Significant Comorbidiites Make Outpatient Treatment Too Risky , Need Close Monitoring Due to Risk of Patient Decompensation, Risk of Complication if Not Cared For in Hospital
[2017-07-27] MEDS: AMLODIPINE BESYLATE 5 MG TABLET PO SCH (22:26)
[2017-07-27] MEDS: ATORVASTATIN CALCIUM 20 MG TABLET PO SCH (22:27)
[2017-07-27] MEDS: METHYLPREDNISOLONE INJ 40 MG/1 ML SDV IV SCH (22:27)
[2017-07-28] MEDS: LANSOPRAZOLE 30 MG TAB.RAP.DR PO SCH (05:09)
[2017-07-28 06:51] LABS: ANION GAP 8 (5-19); BLOOD UREA NITROGEN 28 mg/dL (7-20); CALCIUM 9.2 mg/dL (8.4-10.2); CARBON DIOXIDE 31 mmol/L (22-30); CHLORIDE 100 mmol/L (98-107); GLUCOSE 149 mg/dL (75-110); POTASSIUM 4.9 mmol/L (3.6-5.0); SODIUM 139.3 mmol/L (137-145)
[2017-07-28 07:04] LABS: HEMATOCRIT 41.8 % (36.0-47.0); HEMOGLOBIN 14.1 g/dL (12.0-15.5); MEAN CORPUSCULAR HEMOGLOBIN 28.9 pg (27.0-33.4); MEAN CORPUSCULAR HGB CONC 33.7 g/dL (32.0-36.0); MEAN CORPUSCULAR VOLUME 86 fl (80-97); PLATELET COUNT 318 10^3/uL (150-450); RED BLOOD COUNT 4.87 10^6/uL (3.72-5.28); RED CELL DISTRIBUTION WIDTH 14.4 % (11.5-14.0); WHITE BLOOD COUNT 15.1 10^3/uL (4.0-10.5)
[2017-07-28] MEDS: IPRATROPIUM/ALBUTEROL 0.5-2.5 MG/3 ML AMPUL NEB SCH ×3 (08:43→20:29)
[2017-07-28] MEDS: INSULIN LISPRO 100 UNIT/ML 3 ML VIAL SUBCUT PRN ×3 (09:22→22:04)
[2017-07-28] MEDS: INSULIN LISPRO 100 UNIT/ML 3 ML VIAL SUBCUT SCH ×3 (09:22→18:13)
[2017-07-28] MEDS: MONTELUKAST SODIUM 10 MG TABLET PO SCH (09:22)
[2017-07-28] MEDS: ENOXAPARIN SODIUM INJ 40 MG/0.4 ML DISP.SYRIN SUBCUT SCH (09:22)
[2017-07-28] MEDS: LEVOFLOXACIN 750 MG TABLET PO SCH (09:22)
[2017-07-28] MEDS: NYSTATIN 500000 UNIT/5 ML UDCUP PO SCH ×4 (09:22→22:02)
[2017-07-28] MEDS: METHYLPREDNISOLONE INJ 40 MG/1 ML SDV IV SCH ×2 (09:22→22:02)
--- NOTE | 2017-07-28 15:12 | PDOC PROGRESS REPORT ---
Subjective Progress Note for:: 07/28/17 Subjective:: Patient admitted with COPD and difficulty breathing. She admits to feeling better although since she is still dyspneic on ambulation. She has been able to take off her oxygen and has been using it intermittently as desired. Reason For Visit: COPD WITH EXACERBATION,ACUTE HYPOXEMIC RESPIRATORY Physical Exam Vital Signs: Temp Pulse Resp BP Pulse Ox 98.1 F 77 16 151/75 H 92 07/28/17 07:34 07/28/17 13:55 07/28/17 13:55 07/28/17 07:34 07/28/17 13:55 Intake & Output 07/27/17 07/28/17 07/29/17 06:59 06:59 06:59 Intake Total 1717 1830 Balance 1717 1830 Weight 83.5 kg 84.1 kg General appearance: PRESENT: no acute distress Head exam: PRESENT: atraumatic Respiratory exam: PRESENT: decreased breath sounds, rhonchi, unlabored Cardiovascular exam: PRESENT: RRR. ABSENT: diastolic murmur, rubs, systolic murmur GI/Abdominal exam: PRESENT: normal bowel sounds, soft. ABSENT: distended, guarding, mass, organolmegaly, rebound, tenderness Rectal exam: PRESENT: deferred Neurological exam: PRESENT: alert, awake, oriented to person, oriented to time, oriented to situation Psychiatric exam: PRESENT: appropriate affect, normal mood. ABSENT: homicidal ideation, suicidal ideation Skin exam: PRESENT: dry, intact, warm. ABSENT: cyanosis, rash Results Laboratory Results: 07/28/17 05:42 07/28/17 05:42 07/28/17 07/28/17 05:42 05:42 WBC 15.1 H RBC 4.87 Hgb 14.1 Hct 41.8 MCV 86 MCH 28.9 MCHC 33.7 RDW 14.4 H Plt Count 318 Sodium 139.3 Potassium 4.9 Chloride 100 Carbon Dioxide 31 H Anion Gap 8 BUN 28 H Creatinine 0.91 Est GFR ( Amer) > 60 Est GFR (Non-Af Amer) > 60 Glucose 149 H Calcium 9.2 07/24/17 07/24/17 07/24/17 12:13 12:13 17:30 Creatine Kinase 80 89 CK-MB (CK-2) 3.41 Troponin I < 0.012 NT-Pro-B Natriuret Pep 212 03/09/18 03/09/18 03/09/18 17:30 23:54 23:54 Creatine Kinase 89 CK-MB (CK-2) 3.76 4.38 Troponin I < 0.012 < 0.012 NT-Pro-B Natriuret Pep 07/26/17 07/26/17 07/26/17 07:57 07:57 14:17 Creatine Kinase 88 119 CK-MB (CK-2) 5.86 H Troponin I < 0.012 NT-Pro-B Natriuret Pep 07/26/17 07/26/17 07/26/17 14:17 17:45 17:45 Creatine Kinase 124 CK-MB (CK-2) 7.22 H 7.87 H Troponin I < 0.012 < 0.012 NT-Pro-B Natriuret Pep 07/26/17 07/26/17 07/27/17 21:57 21:57 12:18 Creatine Kinase 141 H 108 CK-MB (CK-2) 7.93 H Troponin I < 0.012 NT-Pro-B Natriuret Pep 07/27/17 12:18 Creatine Kinase CK-MB (CK-2) 6.10 H Troponin I < 0.012 NT-Pro-B Natriuret Pep Impressions: Chest X-Ray 07/24/17 09:25 IMPRESSION: NO ACUTE RADIOGRAPHIC FINDING IN THE CHEST. Chest/Abdomen CTA 07/24/17 11:03 IMPRESSION: No PE. No acute findings. Assessment & Plan - Time Time Spent with patient: 15-24 minutes Medications reviewed and adjusted accordingly: Yes Anticipated discharge: Home Within: within 48 hours - Plan Summary Plan Summary: 1.Acute hypoxemic respiratory failure likely multifactorial from pneumonia, and COPD with acute exacerbation. We will continue to wean off oxygen as tolerated. 2. Community-acquired pneumonia currently on empiric antibiotics. Will continue with this and de-escalate as per response 3. COPD with acute exacerbation currently on steroids which is being titrated 4. Tobacco use disorder- smoking cessation 5.Type 2 Diabetes Mellitus- - Controlled, diabetic education. 6. Hypertension- controlled 7. Elevated CK-MB level thought to be from COPD exacerbation. No evidence of ACS
--- NOTE | 2017-07-28 19:34 | PDOC PROGRESS REPORT ---
Subjective Progress Note for:: 07/28/17 Subjective:: Patient seems to be doing better with gradual improvement. Patient still short of breath but wheezing is better. Pt is denying any chest arm or neck discomfort. Patient denying any PND, orthopnea. Patient denied any sustained palpitations, dizziness, syncope, near syncope. Patient denying any fever chills. Patient denying any other significant discomfort. Patient is maintaining sinus rhythm. Review of systems: Rest review of systems negative. Medications: Medications have been reviewed. Reason For Visit: COPD WITH EXACERBATION,ACUTE HYPOXEMIC RESPIRATORY Physical Exam Vital Signs: Temp Pulse Resp BP Pulse Ox 98.1 F 78 16 151/75 H 91 L 07/28/17 07:34 07/28/17 08:52 07/28/17 08:52 07/28/17 07:34 07/28/17 08:52 Intake & Output 07/27/17 07/28/17 07/29/17 06:59 06:59 06:59 Intake Total 1717 1830 Balance 1717 1830 Weight 83.5 kg 84.1 kg Exam: GENERAL: well-nourished and in no acute distress. Alert and oriented x3 HEAD: Atraumatic, normocephalic. EYES: Pupils equal round and reactive to light, extraocular movements intact, sclera anicteric, conjunctiva are normal. ENT: TMs normal, nares patent, oropharynx clear without exudates. Moist mucous membranes. No oral ulcerations or bleeding gums noted NECK: supple without lymphadenopathy. Trachea is central. No cervical or axillary lymphadenopathy noted. Carotids are 2+, JVD WNL LUNGS: Respiration seems nonlabored, no significant accessory muscle action noted. Scattered high-pitched wheezes rales or rhonchi noted. No significant dullness noted on percussion. CHEST: Palpation of the chest wall shows no significant chest wall tenderness. No other significant abnormalities noted. 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 ABDOMEN: Soft, no significant tenderness appreciated, normoactive bowel sounds. No guarding, no rebound. No rigidity noted . No masses appreciated. EXTREMITIES: Pedal pulses are 1-2+, no calf tenderness noted. No clubbing or cyanosis.trace pedal edema noted NEUROLOGICAL: Focused neurological exam showed no significant neurologic deficit. Normal speech, no focal weakness appreciated. PSYCH: Normal mood, normal affect. Judgment and insight within normal limits. SKIN: No significant ecchymosis, skin is noted to be warm. MUSCULOSKELETAL EXAM: No significant acute joint swelling noted. Results Laboratory Results: 07/28/17 05:42 07/28/17 05:42 07/27/17 07/27/17 07/28/17 12:18 12:18 05:42 WBC 23.0 H 15.1 H RBC 4.95 4.87 Hgb 14.6 14.1 Hct 42.4 41.8 MCV 86 86 MCH 29.4 28.9 MCHC 34.3 33.7 RDW 14.3 H 14.4 H Plt Count 312 318 Sodium 138.4 Potassium 4.7 Chloride 102 Carbon Dioxide 28 Anion Gap 8 BUN 28 H Creatinine 0.87 Est GFR ( Amer) > 60 Est GFR (Non-Af Amer) > 60 Glucose 101 Calcium 9.6 07/28/17 05:42 WBC RBC Hgb Hct MCV MCH MCHC RDW Plt Count Sodium 139.3 Potassium 4.9 Chloride 100 Carbon Dioxide 31 H Anion Gap 8 BUN 28 H Creatinine 0.91 Est GFR ( Amer) > 60 Est GFR (Non-Af Amer) > 60 Glucose 149 H Calcium 9.2 07/24/17 07/24/17 07/24/17 12:13 12:13 17:30 Creatine Kinase 80 89 CK-MB (CK-2) 3.41 Troponin I < 0.012 NT-Pro-B Natriuret Pep 212 07/24/17 07/24/17 07/24/17 17:30 23:54 23:54 Creatine Kinase 89 CK-MB (CK-2) 3.76 4.38 Troponin I < 0.012 < 0.012 NT-Pro-B Natriuret Pep 07/26/17 07/26/17 07/26/17 07:57 07:57 14:17 Creatine Kinase 88 119 CK-MB (CK-2) 5.86 H Troponin I < 0.012 NT-Pro-B Natriuret Pep 07/26/17 07/26/17 07/26/17 14:17 17:45 17:45 Creatine Kinase 124 CK-MB (CK-2) 7.22 H 7.87 H Troponin I < 0.012 < 0.012 NT-Pro-B Natriuret Pep 07/26/17 07/26/17 07/27/17 21:57 21:57 12:18 Creatine Kinase 141 H 108 CK-MB (CK-2) 7.93 H Troponin I < 0.012 NT-Pro-B Natriuret Pep 07/27/17 12:18 Creatine Kinase CK-MB (CK-2) 6.10 H Troponin I < 0.012 NT-Pro-B Natriuret Pep Impressions: Chest X-Ray 07/24/17 09:25 IMPRESSION: NO ACUTE RADIOGRAPHIC FINDING IN THE CHEST. Chest/Abdomen CTA 07/24/17 11:03 IMPRESSION: No PE. No acute findings. 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 Patient still is significantly short of breath but is gradually improving. Have discussed that a stress test will be indicated but within a few weeks. Total elevation of CK-MB with normal troponin I: Most likely related to diaphragmatic muscle fatigue in patients with severe COPD and asthma is well described. At this point primary aim with be to improve her pulmonary status. 2D echo was reviewed. It shows normal LVEF. No significant valvular abnormalities noted. Acute hypoxemic respiratory failure: Patient seems to be improving. Diabetes: Under satisfactory control. Tobacco abuse disorder: Patient now claims that she is able to quit smoking and is willing to do so. - Time Time with patient: 15-25 minutes - CODE STATUS was discussed, patient remains full code. Surrogate decision-maker unchanged. Multiple medical problems were addressed. More than 50% of the time spent coordinating care, discussing management plans with involved caregivers. Management plans discussed with involved personnels. Medical decision making was of moderate to high complexity , patient's has multiple comorbidities.
[2017-07-28] MEDS: ATORVASTATIN CALCIUM 20 MG TABLET PO SCH (22:02)
[2017-07-28] MEDS: AMLODIPINE BESYLATE 5 MG TABLET PO SCH (22:02)
[2017-07-29] MEDS: LANSOPRAZOLE 30 MG TAB.RAP.DR PO SCH (05:15)
[2017-07-29] MEDS: IPRATROPIUM/ALBUTEROL 0.5-2.5 MG/3 ML AMPUL NEB SCH ×3 (08:12→21:00)
[2017-07-29] MEDS: INSULIN LISPRO 100 UNIT/ML 3 ML VIAL SUBCUT SCH ×3 (08:26→17:10)
[2017-07-29] MEDS: ENOXAPARIN SODIUM INJ 40 MG/0.4 ML DISP.SYRIN SUBCUT SCH (09:45)
[2017-07-29] MEDS: METHYLPREDNISOLONE INJ 40 MG/1 ML SDV IV SCH (09:46)
[2017-07-29] MEDS: NYSTATIN 500000 UNIT/5 ML UDCUP PO SCH ×4 (09:46→22:56)
[2017-07-29] MEDS: MONTELUKAST SODIUM 10 MG TABLET PO SCH (09:47)
[2017-07-29] MEDS: LEVOFLOXACIN 750 MG TABLET PO SCH (09:47)
[2017-07-29] MEDS: INSULIN LISPRO 100 UNIT/ML 3 ML VIAL SUBCUT PRN ×2 (13:18→22:56)
--- NOTE | 2017-07-29 16:22 | PDOC PROGRESS REPORT ---
Subjective Progress Note for:: 07/29/17 Subjective:: Patient admitted with COPD and difficulty breathing. She admits to feeling better with less dyspnea on exertion Reason For Visit: COPD WITH EXACERBATION,ACUTE HYPOXEMIC RESPIRATORY Physical Exam Vital Signs: Temp Pulse Resp BP Pulse Ox 97.7 F 96 18 157/70 H 95 07/29/17 07:42 07/29/17 14:00 07/29/17 13:57 07/29/17 07:42 07/29/17 13:57 Intake & Output 07/28/17 07/29/17 07/30/17 06:59 06:59 06:59 Intake Total 1830 1204 222 Balance 1830 1204 222 Weight 84.1 kg 83.7 kg General appearance: PRESENT: no acute distress Head exam: PRESENT: atraumatic Ear exam: PRESENT: normal external ear exam Neck exam: ABSENT: carotid bruit, JVD, lymphadenopathy, thyromegaly Respiratory exam: PRESENT: clear to auscultation gelacio. ABSENT: rales, rhonchi, wheezes Cardiovascular exam: PRESENT: RRR. ABSENT: diastolic murmur, rubs, systolic murmur Pulses: PRESENT: normal dorsalis pedis pul GI/Abdominal exam: PRESENT: normal bowel sounds, soft. ABSENT: distended, guarding, mass, organolmegaly, rebound, tenderness Rectal exam: PRESENT: deferred Extremities exam: PRESENT: full ROM. ABSENT: calf tenderness, clubbing, pedal edema Neurological exam: PRESENT: alert, awake, oriented to person, oriented to place , oriented to time, oriented to situation, CN II-XII grossly intact. ABSENT: motor sensory deficit Psychiatric exam: PRESENT: appropriate affect, normal mood. ABSENT: homicidal ideation, suicidal ideation Results Laboratory Results: 07/28/17 05:42 07/28/17 05:42 07/24/17 07/24/17 07/24/17 12:13 12:13 17:30 Creatine Kinase 80 89 CK-MB (CK-2) 3.41 Troponin I < 0.012 NT-Pro-B Natriuret Pep 212 07/24/17 07/24/17 07/24/17 17:30 23:54 23:54 Creatine Kinase 89 CK-MB (CK-2) 3.76 4.38 Troponin I < 0.012 < 0.012 NT-Pro-B Natriuret Pep 07/26/17 07/26/17 07/26/17 07:57 07:57 14:17 Creatine Kinase 88 119 CK-MB (CK-2) 5.86 H Troponin I < 0.012 NT-Pro-B Natriuret Pep 07/26/17 07/26/17 07/26/17 14:17 17:45 17:45 Creatine Kinase 124 CK-MB (CK-2) 7.22 H 7.87 H Troponin I < 0.012 < 0.012 NT-Pro-B Natriuret Pep 07/26/17 07/26/17 07/27/17 21:57 21:57 12:18 Creatine Kinase 141 H 108 CK-MB (CK-2) 7.93 H Troponin I < 0.012 NT-Pro-B Natriuret Pep 07/27/17 12:18 Creatine Kinase CK-MB (CK-2) 6.10 H Troponin I < 0.012 NT-Pro-B Natriuret Pep Impressions: Chest X-Ray 07/24/17 09:25 IMPRESSION: NO ACUTE RADIOGRAPHIC FINDING IN THE CHEST. Chest/Abdomen CTA 07/24/17 11:03 IMPRESSION: No PE. No acute findings. Assessment & Plan - Time Time Spent with patient: 15-24 minutes Medications reviewed and adjusted accordingly: Yes Anticipated discharge: Home - Inpatient Certification Medical Necessity: Need for IV Antibiotics - Plan Summary Plan Summary: 1.Acute hypoxemic respiratory failure likely multifactorial from pneumonia, and COPD with acute exacerbation. This is improving and she rarely needs Oxygen. 2. Community-acquired pneumonia currently on empiric antibiotics. 3. COPD with acute exacerbation c- cont to titrate steroids 4. Tobacco use disorder- smoking cessation 5.Type 2 Diabetes Mellitus- - Controlled, diabetic education. 6. Hypertension- controlled 7. Elevated CK-MB level thought to be from COPD exacerbation. No evidence of ACS
[2017-07-29] MEDS: PREDNISONE 20 MG TABLET PO SCH (17:10)
[2017-07-29] MEDS: AMLODIPINE BESYLATE 5 MG TABLET PO SCH (22:56)
[2017-07-29] MEDS: ATORVASTATIN CALCIUM 20 MG TABLET PO SCH (22:57)
[2017-07-30] MEDS: LANSOPRAZOLE 30 MG TAB.RAP.DR PO SCH (05:22)
[2017-07-30 06:43] LABS: ANION GAP 8 (5-19); BLOOD UREA NITROGEN 32 mg/dL (7-20); CALCIUM 9.2 mg/dL (8.4-10.2); CARBON DIOXIDE 32 mmol/L (22-30); CHLORIDE 98 mmol/L (98-107); GLUCOSE 117 mg/dL (75-110); POTASSIUM 4.6 mmol/L (3.6-5.0); SODIUM 137.5 mmol/L (137-145)
[2017-07-30 06:47] LABS: HEMATOCRIT 41.7 % (36.0-47.0); MEAN CORPUSCULAR HEMOGLOBIN 28.8 pg (27.0-33.4); MEAN CORPUSCULAR HGB CONC 33.5 g/dL (32.0-36.0); MEAN CORPUSCULAR VOLUME 86 fl (80-97); PLATELET COUNT 264 10^3/uL (150-450); RED BLOOD COUNT 4.84 10^6/uL (3.72-5.28); WHITE BLOOD COUNT 24.2 10^3/uL (4.0-10.5)
[2017-07-30] MEDS: IPRATROPIUM/ALBUTEROL 0.5-2.5 MG/3 ML AMPUL NEB SCH ×3 (08:45→21:23)
[2017-07-30] MEDS: INSULIN LISPRO 100 UNIT/ML 3 ML VIAL SUBCUT SCH ×3 (08:56→17:14)
[2017-07-30] MEDS: NYSTATIN 500000 UNIT/5 ML UDCUP PO SCH ×4 (09:02→22:30)
[2017-07-30] MEDS: PREDNISONE 20 MG TABLET PO SCH ×2 (09:02→17:14)
[2017-07-30] MEDS: LEVOFLOXACIN 750 MG TABLET PO SCH (09:03)
[2017-07-30] MEDS: MONTELUKAST SODIUM 10 MG TABLET PO SCH (09:03)
[2017-07-30] MEDS: ENOXAPARIN SODIUM INJ 40 MG/0.4 ML DISP.SYRIN SUBCUT SCH (09:04)
[2017-07-30] MEDS ORDERED: ERGOCALCIFEROL (VITAMIN D2) 50000 UNIT (1.25 MG) CAPSULE PO SCH (10:00)
--- NOTE | 2017-07-30 12:37 | PDOC PROGRESS REPORT ---
Subjective Progress Note for:: 07/29/17 Subjective:: Patient seems to be doing better with gradual improvement. Patient still short of breath but wheezing is better. Pt is denying any chest arm or neck discomfort. Patient denying any PND, orthopnea. Patient denied any sustained palpitations, dizziness, syncope, near syncope. Patient denying any fever chills. Patient denying any other significant discomfort. Patient is maintaining sinus rhythm. Review of systems: Rest review of systems negative. Medications: Medications have been reviewed. Reason For Visit: COPD WITH EXACERBATION,ACUTE HYPOXEMIC RESPIRATORY Physical Exam Vital Signs: Temp Pulse Resp BP Pulse Ox 97.9 F 99 18 146/64 H 95 07/29/17 16:08 07/29/17 16:08 07/29/17 16:08 07/29/17 16:08 07/29/17 16:26 Intake & Output 07/28/17 07/29/17 07/30/17 06:59 06:59 06:59 Intake Total 1830 1204 419 Balance 1830 1204 419 Weight 84.1 kg 83.7 kg Exam: GENERAL: well-nourished and in no acute distress. Alert and oriented x3 HEAD: Atraumatic, normocephalic. EYES: Pupils equal round and reactive to light, extraocular movements intact, sclera anicteric, conjunctiva are normal. ENT: TMs normal, nares patent, oropharynx clear without exudates. Moist mucous membranes. No oral ulcerations or bleeding gums noted NECK: supple without lymphadenopathy. Trachea is central. No cervical or axillary lymphadenopathy noted. Carotids are 2+, JVD WNL LUNGS: Respiration seems nonlabored, no significant accessory muscle action noted. Breath sounds clear to auscultation bilaterally and equal noted. No wheezes rales or rhonchi noted. No significant dullness noted on percussion. CHEST: Palpation of the chest wall shows no significant chest wall tenderness. No other significant abnormalities noted. 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 ABDOMEN: Soft, no significant tenderness appreciated, normoactive bowel sounds. No guarding, no rebound. No rigidity noted . No masses appreciated. EXTREMITIES: Pedal pulses are 1-2+, no calf tenderness noted. No clubbing or cyanosis.trace pedal edema noted NEUROLOGICAL: Focused neurological exam showed no significant neurologic deficit. Normal speech, no focal weakness appreciated. PSYCH: Normal mood, normal affect. Judgment and insight within normal limits. SKIN: No significant ecchymosis, skin is noted to be warm. MUSCULOSKELETAL EXAM: No significant acute joint swelling noted. Results Laboratory Results: 07/28/17 05:42 07/28/17 05:42 07/24/17 07/24/17 07/24/17 12:13 12:13 17:30 Creatine Kinase 80 89 CK-MB (CK-2) 3.41 Troponin I < 0.012 NT-Pro-B Natriuret Pep 212 07/24/17 07/24/17 07/24/17 17:30 23:54 23:54 Creatine Kinase 89 CK-MB (CK-2) 3.76 4.38 Troponin I < 0.012 < 0.012 NT-Pro-B Natriuret Pep 07/26/17 07/26/17 07/26/17 07:57 07:57 14:17 Creatine Kinase 88 119 CK-MB (CK-2) 5.86 H Troponin I < 0.012 NT-Pro-B Natriuret Pep 07/26/17 07/26/17 07/26/17 14:17 17:45 17:45 Creatine Kinase 124 CK-MB (CK-2) 7.22 H 7.87 H Troponin I < 0.012 < 0.012 NT-Pro-B Natriuret Pep 07/26/17 07/26/17 07/27/17 21:57 21:57 12:18 Creatine Kinase 141 H 108 CK-MB (CK-2) 7.93 H Troponin I < 0.012 NT-Pro-B Natriuret Pep 07/27/17 12:18 Creatine Kinase CK-MB (CK-2) 6.10 H Troponin I < 0.012 NT-Pro-B Natriuret Pep EKG Comments: Telemetry shows sinus rhythm without any sustained tacky or bradycardia. Impressions: Chest X-Ray 07/24/17 09:25 IMPRESSION: NO ACUTE RADIOGRAPHIC FINDING IN THE CHEST. Chest/Abdomen CTA 07/24/17 11:03 IMPRESSION: No PE. No acute findings. Assessment & Plan - Diagnosis (1) Abnormal cardiac enzyme level Is this a current diagnosis for this admission?: Yes (2) Acute hypoxemic respiratory failure Is this a current diagnosis for this admission?: Yes (3) COPD with exacerbation Is this a current diagnosis for this admission?: Yes (4) Diabetes Qualifiers: Diabetes mellitus type: type 2 Diabetes mellitus bed bug exterminator insulin use: unspecified bed bug exterminator insulin use status Diabetes mellitus complication status : without complication Qualified Code(s): E11.9 - Type 2 diabetes mellitus without complications Is this a current diagnosis for this admission?: Yes (5) Tobacco use disorder, continuous Is this a current diagnosis for this admission?: Yes - Notes Notes: Total elevation of CK-MB with normal troponin I: Most likely related to diaphragmatic muscle fatigue in patients with severe COPD and asthma is well described. At this point primary aim with be to improve her pulmonary status. Discussed that we should consider a stress test once her respiratory status is improved. This will be scheduled in 2 weeks or so. Patient has been advised to quit smoking. 2D echo was reviewed. It shows normal LVEF. No significant valvular abnormalities noted. Acute hypoxemic respiratory failure: Patient seems to be improving. Diabetes: Under satisfactory control. Tobacco abuse disorder: Patient now claims that she is able to quit smoking and is willing to do so. At this point will sign off. Patient given follow-up appointment. Please reconsult if needed. - Time Time with patient: 15-25 minutes - CODE STATUS was discussed, patient remains full code. Surrogate decision-maker unchanged. Multiple medical problems were addressed. More than 50% of the time spent coordinating care, discussing management plans with involved caregivers. Management plans discussed with involved personnels. Medical decision making was of moderate to high complexity , patient's has multiple comorbidities. Medications reviewed and adjusted accordingly: Yes
--- NOTE | 2017-07-30 14:07 | PDOC PROGRESS REPORT ---
Subjective Progress Note for:: 07/30/17 Subjective:: Patient admitted with COPD and difficulty breathing. She continues to feel better with less dyspnea on exertion Reason For Visit: COPD WITH EXACERBATION,ACUTE HYPOXEMIC RESPIRATORY Physical Exam Vital Signs: Temp Pulse Resp BP Pulse Ox 98 F 89 16 129/57 H 95 07/30/17 12:00 07/30/17 12:00 07/30/17 12:00 07/30/17 12:00 07/30/17 12:00 Intake & Output 07/29/17 07/30/17 07/31/17 06:59 06:59 06:59 Intake Total 1204 893 118 Balance 1204 893 118 Weight 83.7 kg 82.2 kg General appearance: PRESENT: no acute distress, well-developed Head exam: PRESENT: atraumatic Ear exam: PRESENT: normal external ear exam Respiratory exam: PRESENT: crackles, decreased breath sounds, unlabored. ABSENT : accessory muscle use Cardiovascular exam: PRESENT: RRR. ABSENT: diastolic murmur, rubs, systolic murmur GI/Abdominal exam: PRESENT: normal bowel sounds, soft. ABSENT: distended, guarding, mass, organolmegaly, rebound, tenderness Rectal exam: PRESENT: deferred Extremities exam: PRESENT: full ROM. ABSENT: calf tenderness, clubbing, pedal edema Neurological exam: PRESENT: alert, awake, oriented to person, oriented to place , oriented to time, oriented to situation, CN II-XII grossly intact. ABSENT: motor sensory deficit Results Laboratory Results: 07/30/17 05:45 07/30/17 05:45 07/30/17 07/30/17 05:45 05:45 WBC 24.2 H RBC 4.84 Hgb 14.0 Hct 41.7 MCV 86 MCH 28.8 MCHC 33.5 RDW 14.0 Plt Count 264 Sodium 137.5 Potassium 4.6 Chloride 98 Carbon Dioxide 32 H Anion Gap 8 BUN 32 H Creatinine 0.89 Est GFR ( Amer) > 60 Est GFR (Non-Af Amer) > 60 Glucose 117 H Calcium 9.2 07/24/17 07/24/17 07/24/17 12:13 12:13 17:30 Creatine Kinase 80 89 CK-MB (CK-2) 3.41 Troponin I < 0.012 NT-Pro-B Natriuret Pep 212 07/24/17 07/24/17 07/24/17 17:30 23:54 23:54 Creatine Kinase 89 CK-MB (CK-2) 3.76 4.38 Troponin I < 0.012 < 0.012 NT-Pro-B Natriuret Pep 07/26/17 07/26/17 07/26/17 07:57 07:57 14:17 Creatine Kinase 88 119 CK-MB (CK-2) 5.86 H Troponin I < 0.012 NT-Pro-B Natriuret Pep 07/26/17 07/26/17 07/26/17 14:17 17:45 17:45 Creatine Kinase 124 CK-MB (CK-2) 7.22 H 7.87 H Troponin I < 0.012 < 0.012 NT-Pro-B Natriuret Pep 07/26/17 07/26/17 07/27/17 21:57 21:57 12:18 Creatine Kinase 141 H 108 CK-MB (CK-2) 7.93 H Troponin I < 0.012 NT-Pro-B Natriuret Pep 07/27/17 12:18 Creatine Kinase CK-MB (CK-2) 6.10 H Troponin I < 0.012 NT-Pro-B Natriuret Pep Impressions: Chest X-Ray 07/24/17 09:25 IMPRESSION: NO ACUTE RADIOGRAPHIC FINDING IN THE CHEST. Chest/Abdomen CTA 07/24/17 11:03 IMPRESSION: No PE. No acute findings. Assessment & Plan - Time Time Spent with patient: 15-24 minutes Medications reviewed and adjusted accordingly: Yes Anticipated discharge: Home Within: within 24 hours - Inpatient Certification Medical Necessity: Risk of Complication if Not Cared For in Hospital - Plan Summary Plan Summary: 1.Acute hypoxemic respiratory failure likely multifactorial from pneumonia, and COPD with acute exacerbation. Improving. WBC noted to be elevated today. Patient does not appear to be clinically worse and I suspect this is all secondary to steroids.. However I will keep her overnight and recheck her white count in a.m. Solumedrol has been changed to oral prednisone 2. Community-acquired pneumonia currently on empiric antibiotics. 3. COPD with acute exacerbation cont to titrate prednisone 4. Tobacco use disorder- smoking cessation 5.Type 2 Diabetes Mellitus- - Controlled, diabetic education. 6. Hypertension- controlled 7. Elevated CK-MB level thought to be from COPD exacerbation. No evidence of ACS Echo noted and Cardiology consult noted
[2017-07-30] MEDS: AMLODIPINE BESYLATE 5 MG TABLET PO SCH (22:29)
[2017-07-30] MEDS: ATORVASTATIN CALCIUM 20 MG TABLET PO SCH (22:30)
[2017-07-30] MEDS: INSULIN LISPRO 100 UNIT/ML 3 ML VIAL SUBCUT PRN (22:33)
[2017-07-31] MEDS: LANSOPRAZOLE 30 MG TAB.RAP.DR PO SCH (05:35)
[2017-07-31 07:24] LABS: HEMATOCRIT 41.4 % (36.0-47.0); MEAN CORPUSCULAR HEMOGLOBIN 28.9 pg (27.0-33.4); MEAN CORPUSCULAR HGB CONC 33.7 g/dL (32.0-36.0); MEAN CORPUSCULAR VOLUME 86 fl (80-97); PLATELET COUNT 249 10^3/uL (150-450); RED BLOOD COUNT 4.84 10^6/uL (3.72-5.28); RED CELL DISTRIBUTION WIDTH 13.8 % (11.5-14.0); WHITE BLOOD COUNT 24.3 10^3/uL (4.0-10.5)
[2017-07-31] MEDS: INSULIN LISPRO 100 UNIT/ML 3 ML VIAL SUBCUT SCH ×2 (08:20→12:52)
[2017-07-31] MEDS: ENOXAPARIN SODIUM INJ 40 MG/0.4 ML DISP.SYRIN SUBCUT SCH (09:10)
[2017-07-31] MEDS: PREDNISONE 20 MG TABLET PO SCH (09:11)
[2017-07-31] MEDS: NYSTATIN 500000 UNIT/5 ML UDCUP PO SCH (09:11)
[2017-07-31] MEDS: MONTELUKAST SODIUM 10 MG TABLET PO SCH (09:11)
[2017-07-31] MEDS: LEVOFLOXACIN 750 MG TABLET PO SCH (09:11)
[2017-07-31] MEDS: IPRATROPIUM/ALBUTEROL 0.5-2.5 MG/3 ML AMPUL NEB SCH (09:17)
--- NOTE | 2017-07-31 12:19 | Progress Note ---
Provider Note Provider Note: Isamar Hinds/ To whom it may Concern. Roseann Guillen was admitted to the hospital on 07/24/2017 through 07/31/2017. She can resume her regular activities on 08/17/2017. Thank you, Dr. Stockton
[2017-07-31 13:03] VITALS: BP 145/73
--- NOTE | 2017-07-31 19:54 | PDOC DISCHARGE SUMMARY ---
General - Admit/Disc Date/PCP Admission Date/Primary Care Provider: 07/24/17 10:57 LESA MI MD Discharge Date: 07/31/17 - Discharge Diagnosis (1) Abnormal cardiac enzyme level Is this a current diagnosis for this admission?: Yes (2) Acute hypoxemic respiratory failure Is this a current diagnosis for this admission?: Yes (3) COPD with exacerbation Is this a current diagnosis for this admission?: Yes (4) Leukocytosis Is this a current diagnosis for this admission?: Yes Summary: Patient still has a leukocytosis however this is felt to be secondary to prolonged steroid use intravenously while in hospital as there is no evidence of worsening infection. She is advised to follow-up with her primary care physician for repeat CBC to ensure resolution of WBC to baseline (5) Pneumonia, community acquired Is this a current diagnosis for this admission?: Yes (6) Pre-diabetes Is this a current diagnosis for this admission?: Yes (7) Hypertension Is this a current diagnosis for this admission?: Yes (8) Tobacco use disorder, continuous Is this a current diagnosis for this admission?: Yes - Additional Information Resuscitation Status: Full Code Discharge Diet: Cardiac Discharge Activity: Activity As Tolerated Prescriptions: RX: Amlodipine Besylate [Norvasc 5 mg Tablet] 5 mg PO QHS #30 tablet RX: Atorvastatin Calcium [Lipitor 20 mg Tablet] 20 mg PO QHS #30 tablet RX: Levofloxacin [Levaquin 750 mg Tablet] 750 mg PO DAILY #3 tablet RX: Prednisone [Deltasone 20 mg Tablet] 40 mg PO DAILY 4 Days tablet Home Medications: RX: Albuterol Sulfate [Ventolin 0.083% Neb 2.5 mg/3 mL Ampul] 1 vial NEB RTQ4HP PRN 07/24/17 RX: Ergocalciferol (Vitamin D2) [Vitamin D2] 50,000 unit PO TH@1000 07/24/17 RX: Fluticasone/Salmeterol [Advair 500-50 Diskus 28 Dose] 1 inh IH Q12 07/24/17 RX: Hydrocodone/Chlorphen P-Stirex [Tussionex Pennkinetic Susp] 5 ml PO Q12 02/02 RX: Montelukast Sodium [Singulair 10 mg Tablet] 10 mg PO DAILY 07/24/17 RX: Pantoprazole Sodium [Protonix] 40 mg PO Q6AM 07/24/17 RX: Amlodipine Besylate [Norvasc 5 mg Tablet] 5 mg PO QHS #30 tablet 07/31/17 RX: Atorvastatin Calcium [Lipitor 20 mg Tablet] 20 mg PO QHS #30 tablet RX: Levofloxacin [Levaquin 750 mg Tablet] 750 mg PO DAILY #3 tablet 07/31/17 RX: Prednisone [Deltasone 20 mg Tablet] 40 mg PO DAILY 4 Days tablet 07/31/17 History of Present Illness Patient complains of: Difficulty breathing and shortness of breath History of Present Illness: MANI CRISOSTOMO is a 62 year old female Patient was admitted with difficulty breathing and shortness of breath. She had recently been treated for the flu but she had t really not gotten over it. She was sent to the ER where she was thought to have a COPD exacerbation as long as possible superimposed pneumonia and so was admitted for further management. Hospital Course Hospital Course: Patient was admitted with the difficulty breathing and shortness of breath. She was thought to have a COPD exacerbation which she was been treated for as well as community-acquired pneumonia. She received Levaquin as well as bronchodilators and steroids. She was also hypoxemic on initial presentation and required oxygen but hypoxemia is slowly resolved. Her blood sugars were found to be elevated but her hemoglobin A1c was 6.1. Since tapering off her steroids blood sugars being well controlled with no insulin coverage. She was also found to have abnormal cardiac enzymes and so was seen by sales representative [employer]. EKG showed no acute ST changes and troponin was normal although she had elevation of CK-MB which was thought to be due to diaphragmatic dysfunction. Physical Exam Vital Signs: Temp Pulse Resp BP Pulse Ox 98.5 F 92 16 135/86 H 93 07/31/17 11:33 07/31/17 11:33 07/31/17 11:33 07/31/17 11:33 07/31/17 11:33 Intake & Output 07/30/17 07/31/17 08/01/17 06:59 06:59 06:59 Intake Total 893 1427 450 Balance 893 1427 450 Weight 82.2 kg 82.2 kg General appearance: PRESENT: no acute distress Head exam: PRESENT: atraumatic Ear exam: PRESENT: normal external ear exam Neck exam: ABSENT: carotid bruit, JVD, lymphadenopathy, thyromegaly Respiratory exam: PRESENT: clear to auscultation gelacio. ABSENT: rales, rhonchi, wheezes Cardiovascular exam: PRESENT: RRR. ABSENT: diastolic murmur, rubs, systolic murmur Pulses: PRESENT: normal dorsalis pedis pul GI/Abdominal exam: PRESENT: normal bowel sounds, soft. ABSENT: distended, guarding, mass, organolmegaly, rebound, tenderness Rectal exam: PRESENT: deferred Neurological exam: PRESENT: alert, awake, oriented to person, oriented to place , oriented to time, oriented to situation, CN II-XII grossly intact. ABSENT: motor sensory deficit Psychiatric exam: PRESENT: appropriate affect, normal mood. ABSENT: homicidal ideation, suicidal ideation Results Laboratory Results: 07/31/17 06:26 07/30/17 05:45 07/31/17 06:26 WBC 24.3 H RBC 4.84 Hgb 14.0 Hct 41.4 MCV 86 MCH 28.9 MCHC 33.7 RDW 13.8 Plt Count 249 07/24/17 07/24/17 07/24/17 12:13 12:13 17:30 Creatine Kinase 80 89 CK-MB (CK-2) 3.41 Troponin I < 0.012 NT-Pro-B Natriuret Pep 212 07/24/17 07/24/17 07/24/17 17:30 23:54 23:54 Creatine Kinase 89 CK-MB (CK-2) 3.76 4.38 Troponin I < 0.012 < 0.012 NT-Pro-B Natriuret Pep 07/26/17 07/26/17 07/26/17 07:57 07:57 14:17 Creatine Kinase 88 119 CK-MB (CK-2) 5.86 H Troponin I < 0.012 NT-Pro-B Natriuret Pep 07/26/17 07/26/17 07/26/17 14:17 17:45 17:45 Creatine Kinase 124 CK-MB (CK-2) 7.22 H 7.87 H Troponin I < 0.012 < 0.012 NT-Pro-B Natriuret Pep 07/26/17 07/26/17 07/27/17 21:57 21:57 12:18 Creatine Kinase 141 H 108 CK-MB (CK-2) 7.93 H Troponin I < 0.012 NT-Pro-B Natriuret Pep 07/27/17 12:18 Creatine Kinase CK-MB (CK-2) 6.10 H Troponin I < 0.012 NT-Pro-B Natriuret Pep Impressions: Chest X-Ray 07/24/17 09:25 IMPRESSION: NO ACUTE RADIOGRAPHIC FINDING IN THE CHEST. Chest/Abdomen CTA 07/24/17 11:03 IMPRESSION: No PE. No acute findings. Qualifiers - * PATEINT BEING DISCHARGED WITH ANY OF THE FOLLOWING DIAGNOSIS?: No Plan Discharge Plan: Follow-up with PCP for repeat CBC. Time Spent: Greater than 30 Minutes
== END 2017-07-31 13:47 | disposition home or self-care (01) | DRG 189 ==
LOC: ER 08:49 → EH 10:57 → UNDOADMIN 10:57 → 3S 13:35
PROVIDERS: ADMIT Emergency Medicine; ATTEND Emergency Medicine
DX: J96.01 Acute respiratory failure with hypoxia (principal); J18.9 Pneumonia, unspecified organism; J44.1 Chronic obstructive pulmonary disease with (acute) exacerbation; R74.8 Abnormal levels of other serum enzymes; I10 Essential (primary) hypertension; E11.9 Type 2 diabetes mellitus without complications; M16.0 Bilateral primary osteoarthritis of hip; M19.049 Primary osteoarthritis, unspecified hand; Z79.899 Other long term (current) drug therapy; Z90.710 Acquired absence of both cervix and uterus; F17.210 Nicotine dependence, cigarettes, uncomplicated
CPT/HCPCS: 36415; 36600; 71045; 71275; 80048; 80053; 80061; 82550; 82553; 82803; 82962; 83036; 83605; 83880; 84443; 84484; 85025; 85027; 87040; 90686; 93005; 93010; 93306; 94640; 99285; J1650; J1815; J1956; J2405; J2920; J2930; J3490; J7512; J7620; S0164

== ENCOUNTER → 2018-12-28 | Outpatient (CLI) | payer OTHER ==
--- NOTE | 2018-12-29 08:48 | RADIOLOGY REPORT (SQ) ---
EXAM DESCRIPTION: PET CT SKULL/THIGH COMPLETED DATE/TIME: 12/28/2018 9:59 pm REASON FOR STUDY: R91.1 SOLITARY PULMONARY NODULE R91.1 SOLITARY PULMONARY NODULE COMPARISON: No prior pets, 07/24/2017 CT RADIONUCLIDE AND DOSE: 10.91 mCi F18 FDG The route of agent administration: Intravenous FASTING BLOOD SUGAR: 94 mg/dl CONTRAST TYPE AND DOSE: No CT contrast given. TECHNIQUE: Blood glucose level was verified. Above dose of FDG was injected intravenously. 2-D seg mented attenuation correction images were obtained from the base of the skull to the midthighs. Nonc ontrast CT images were obtained for attenuation correction and fusion with emission images. CT image s were performed without oral or intravenous contrast and are not sensitive for parenchymal lesions. A series of overlapping emission PET images were obtained. Images reviewed and manipulated at [facility] work station by the radiologist. Images stored on PACS. LIMITATIONS: None. FINDINGS: HEAD AND NECK: No areas of abnormal metabolic activity in the soft tissues of the head and neck. CHEST: There is a 9 mm left lingular nodule without increased FDG uptake (series 4, image 100) (max S UV 0.7). No other areas of increased pathologic FDG uptake within the thorax. ABDOMEN AND PELVIS: No areas of abnormal metabolic activity in the abdomen or pelvis. Expected physi ologic activity is present in the genitourinary system and bowel. PROXIMAL LOWER EXTREMITIES: No areas of abnormal metabolic activity in the soft tissues of the lower extremities. BONES: Asymmetry activity at the right glenohumeral joint, likely degenerative (max SUV 6.4). No ot her abnormal metabolic activity in the visualized skeleton. ADDITIONAL CT FINDINGS: 9 mm left lingular nodule. Bilateral breast prostheses. Scattered coronary atherosclerosis. No evidence of acute intrathoracic process. No evidence of acute intra-abdominal/ pelvic process. Aortoiliac atherosclerosis. IMPRESSION: 1. 9 mm left lingular nodule without increased FDG uptake (max SUV 0.7) possibly second javon to lesions size. 2. Focal increased uptake within the right glenohumeral joint without CT correlate (max SUV 6.4), li neli degenerative. 3. No other areas of abnormal uptake. TECHNICAL DOCUMENTATION: JOB ID: [id number] [facility]- All Rights Reserved Reading location - IP/workstation name: [email or web address]
== END ==
LOC: RAD 16:21
PROVIDERS: ATTEND Family Medicine
DX: R91.1 Solitary pulmonary nodule (principal)
CPT/HCPCS: 78815; A9552